=== PATIENT | female | born 1965 | race Caucasian/White ===

== ENCOUNTER → 2016-04-04 | Outpatient (CLI) | payer BC ==
--- NOTE | 2016-04-04 15:25 | REPMRS ---
Patient History The patient states she had a clinical breast exam in Patient is postmenopausal. Family history of ovarian cancer in maternal aunt under age 50. Took hormonal contraceptives for 1 year. Digital Woman Screen Mammo: April 04, 2016 - Exam #: [id number] Bilateral CC and MLO view(s) were taken. Technologist: Dora Mak, Technologist Prior study comparison: January 29, 2015, digital woman screen mammo performed at [facility]. January 20, 2014, digital woman screen mammo performed at [facility]. FINDINGS: There are scattered fibroglandular densities. There has been no change in the appearance of the mammogram from the prior studies. There is a mild amount of residual fibroglandular tissue which is fairly symmetric. There is no interval development of dominant mass, architectural distortion, or clustered microcalcification suggestive of malignancy. Scattered lymph nodes are seen in the axilla. No significant changes when compared with prior studies. ASSESSMENT: BI-RADS/ACR category 2 mammogram. Benign finding(s). Recommendation Routine screening mammogram in 1 year (for women over age 40). This mammogram was interpreted with the aid of an FDA-approved computer-aided dectection system. A. Negative x-ray reports should not delay biopsy if a dominant or clinically suspicious mass is present. B. Four to eight percent of cancers are not identified by mammography. C. Adenosis and dense breast may obscure an underlying neoplasm. Electronically Signed By: Sina Alfredo MD 04/04/16 [id number]
== END ==
LOC: M WHC 14:07
PROVIDERS: ATTEND Nurse Practitioner Family
DX: Z12.31 Encounter for screening mammogram for malignant neoplasm of breast (principal)

== ENCOUNTER → 2016-04-04 | Outpatient (REF) | payer BC | LOC: M SFHCWAGY 14:07 | PROVIDERS: ATTEND Nurse Practitioner Family | DX: Z12.4 Encounter for screening for malignant neoplasm of cervix (principal) ==

== ENCOUNTER → 2016-06-09 | Outpatient (REF) | payer BC ==
[2016-06-09 18:54] LABS: MEAN CORPUSCULAR HEMOGLOBIN 32.6 pg (27.0-33.0); MEAN CORPUSCULAR HGB CONC 34.2 g/dl (32.0-36.5); MEAN CORPUSCULAR VOLUME 95.5 fl (80.0-96.0); RED CELL DISTRIBUTION WIDTH 12.8 % (11.5-14.5); WHITE BLOOD COUNT 9.7 K/mm3 (4.0-10.0)
[2016-06-09 19:13] LABS: ALBUMIN 3.8 GM/DL (3.2-5.2); ALBUMIN/GLOBULIN RATIO 1.36 (1.00-1.93); ALKALINE PHOSPHATASE 71 U/L (45-117); ALT/SGPT 20 U/L (12-78); ANION GAP 6 MEQ/L (8-16); AST/SGOT 15 U/L (15-37); BILIRUBIN,TOTAL 0.3 MG/DL (0.2-1.0); BLOOD UREA NITROGEN 12 MG/DL (7-18); CALCIUM LEVEL 8.4 MG/DL (8.5-10.1); CARBON DIOXIDE LEVEL 29 MEQ/L (21-32); CHLORIDE LEVEL 106 MEQ/L (98-107); CREATININE FOR GFR 0.89 MG/DL (0.55-1.02); GLOMERULAR FILTRATION RATE > 60.0 (>51); GLUCOSE, FASTING 103 MG/DL (70-105); SODIUM LEVEL 141 MEQ/L (136-145); TOTAL PROTEIN 6.6 GM/DL (6.4-8.2); URIC ACID 5.6 MG/DL (2.6-6.0)
== END ==
LOC: M SFHCLERA 15:57
PROVIDERS: ATTEND Physician Assistant
DX: K21.9 Gastro-esophageal reflux disease without esophagitis (principal); E66.3 Overweight; M10.9 Gout, unspecified

== ENCOUNTER 2016-10-09 11:41 | Emergency (ER) | payer BC ==
[~2016-10-09] VITALS: Ht 157.5 cm; Wt 68.1 kg
[2016-10-09] MEDS ORDERED: TRET0.02 EXT (11:49)
[2016-10-09] MEDS ORDERED: IBUP200T45 PO (11:49)
[2016-10-09] MEDS ORDERED: DEXI60CA2 PO (11:49)
[2016-10-09] MEDS ORDERED: DULO1CAP3 PO (11:49)
[2016-10-09] MEDS ORDERED: ALEV220C2 PO (11:49)
[2016-10-09] MEDS ORDERED: diphenhydrAMINE INJ 50MG/ML VIAL (J1200) IV STA (14:49)
[2016-10-09] MEDS ORDERED: NICOTINE 21MG/24HR 1 EA TRANSDERMAL TD ONE (15:00)
[2016-10-09] MEDS ORDERED: NS 1,000 ML IV ONE (15:00)
[2016-10-09] MEDS ORDERED: METOCLOPRAMIDE 10 MG TAB PO ONE (15:00)
[2016-10-09] MEDS ORDERED: KETOROLAC 30 MG/ML VIAL (J1885) IV ONE (15:00)
[2016-10-09 15:34] LABS: BASO % 0.5 % (0.0-1.0); EOS # 0.3 K/mm3 (0.0-0.50); EOS % 3.7 % (0.0-3.0); LARGE UNSTAINED CELL # 0.1 K/mm3 (0.0-0.4); LARGE UNSTAINED CELL % 1.1 % (0.0-4.0); LYMPH # 1.8 K/mm3 (1.5-4.5); LYMPH % 17.8 % (24.0-44.0); MEAN CORPUSCULAR HGB CONC 33.8 g/dl (32.0-36.5); MEAN CORPUSCULAR VOLUME 94.8 fl (80.0-96.0); MONO # 0.5 K/mm3 (0.0-0.8); MONO % 5.5 % (0.0-5.0); NEUTROPHILS # 6.7 K/mm3 (1.8-7.7); NEUTROPHILS % 71.4 % (36.0-66.0); PLATELET COUNT, AUTOMATED 336 k/mm3 (150-450); RED CELL DISTRIBUTION WIDTH 12.7 % (11.5-14.5); WHITE BLOOD COUNT 9.3 K/mm3 (4.0-10.0)
[2016-10-09 15:59] LABS: ALBUMIN 3.5 GM/DL (3.2-5.2); ALBUMIN/GLOBULIN RATIO 1.09 (1.00-1.93); ALKALINE PHOSPHATASE 58 U/L (45-117); ALT/SGPT 16 U/L (12-78); ANION GAP 8 MEQ/L (8-16); AST/SGOT 13 U/L (15-37); BILIRUBIN,DIRECT < 0.1 MG/DL (0.0-0.2); BILIRUBIN,TOTAL 0.3 MG/DL (0.2-1.0); BLOOD UREA NITROGEN 14 MG/DL (7-18); CALCIUM LEVEL 7.8 MG/DL (8.5-10.1); CARBON DIOXIDE LEVEL 27 MEQ/L (21-32); CHLORIDE LEVEL 110 MEQ/L (98-107); CREATININE FOR GFR 0.78 MG/DL (0.55-1.02); GLOMERULAR FILTRATION RATE > 60.0 (>51); GLUCOSE, FASTING 88 MG/DL (70-105); MAGNESIUM LEVEL 2.1 MG/DL (1.8-2.4); POTASSIUM SERUM 3.8 MEQ/L (3.5-5.1); SODIUM LEVEL 145 MEQ/L (136-145); TOTAL PROTEIN 6.7 GM/DL (6.4-8.2)
[2016-10-09 16:25] LABS: ERYTHROCYTE SEDIMENTATION RATE 7 mm/hr (0-30)
--- NOTE | 2016-10-09 19:19 | ECGEPIP ---
Stationary ECG Study [facility] - ED Test Date: 2016-10-09 Pat Name: DONNA ARAZU Department: Room: - Gender: F Team Foreman: CHITO : 1965 Requested By: SHAINA PEGUERO PA-C Order Number: [id number] Reading MD: Pasha Corona Measurements Intervals [place] Rate: 45 P: 42 ND: 159 QRS: 18 QRSD: 89 T: 40 QT: 459 QTc: 399 Interpretive Statements SINUS BRADYCARDIA NO PRIORS Electronically Signed On 10-09-2016 19:18:54 EDT by Pasha Corona
--- NOTE | 2016-10-09 20:30 | REPUSA ---
CLINICAL HISTORY: Headaches. TECHNIQUE: MRI of the brain was performed without administration of intravenous contrast material. T1 spine echo, T2 fast spin echo, DWI and FLAIR sequences were obtained in sagittal, axial and coronal planes. FINDINGS: The sella and parasellar regions are unremarkable in appearance. The corpus callosum and cerebellar t onsils are of normal configuration and position. There are no intra or extra-axial collections. There is no mass effect or midline shift. There is no evidence of hematoma formation. There is no hydrocep halus. There is no evidence of restricted diffusion. The brain stem shows no mass effects, infarcts or hemorrhage. There are no cerebellopontine tumors. T he acoustic nerves are symmetrical. No cerebellar intra-axial pathology delineated. The fourth ventri elisa and aqueduct are normal. No abnormalities of the optic nerves are identified. No dural or subdura l masses or collections are detected. The visualized arterial structures demonstrate normal appearing flow voids. The VII and VIII nerve bu ndles are visualized and are unremarkable in appearance. There are no suspicious signal abnormalities within the infra or supratentorial space. IMPRESSION: Normal MRI of the brain. No acute intracranial pathology. Thank you for your kind referral of this patient.
--- NOTE | 2016-10-09 20:30 | REPUSA ---
CLINICAL HISTORY: Headaches TECHNIQUE: Three dimensional mkee-su-yrgdzl angiography is performed of the [place]. The estrella dy was performed without IV contrast agent. FINDINGS: The supraclinoid portions of the internal carotid arteries are of normal shape. The normal bifurcation is seen. The middle cerebral arteries are unremarkable in appearance. The posterior circu lation is visualized and shows no evidence of occlusion or aneurysm formation. The basilar tip is see n and shows no aneurysm formation. There is no evidence of beading to suggest vasculitis. IMPRESSION: MRA of the [place] is within normal limits. Thank you for your kind referral of this patient.
[2016-10-09 20:44] VITALS: BP 110/60
[2016-10-09] MEDS ORDERED: NORCO 5/325MG TABLET (BULK FOR ED) PO ONE (21:00)
[2016-10-10] MEDS ORDERED: NORC1TAB4 PO (22:45)
[2016-10-10] MEDS ORDERED: ZYRT10TA2 PO (22:45)
[2016-10-10] MEDS ORDERED: BENA25CA4 PO (22:45)
== END 2016-10-09 20:58 | disposition home or self-care (01) ==
LOC: M ED 11:41
DX: R51 Headache (principal); R00.1 Bradycardia, unspecified; F32.9 Major depressive disorder, single episode, unspecified; F41.9 Anxiety disorder, unspecified; K21.9 Gastro-esophageal reflux disease without esophagitis; M79.7 Fibromyalgia; F17.200 Nicotine dependence, unspecified, uncomplicated; Z79.899 Other long term (current) drug therapy
CPT/HCPCS: 70544; 70551; 80048; 80076; 81001; 83605; 83735; 84443; 85025; 85652; 86140; 93005; 96374; 96375; 99284; J1200; J1885

== ENCOUNTER 2016-10-10 22:38 | Emergency (ER) | payer BC ==
[~2016-10-10] VITALS: Ht 157.5 cm; Wt 68.1 kg
[~2016-10-10 22:38] MED LIST: ALEV220C2 PO; DEXI60CA2 PO; DULO1CAP3 PO; IBUP200T45 PO; TRET0.02 EXT
[2016-10-10] MEDS ORDERED: BENA25CA4 PO (22:45)
[2016-10-10] MEDS ORDERED: NORC1TAB4 PO (22:45)
[2016-10-10] MEDS ORDERED: ZYRT10TA2 PO (22:45)
[2016-10-10] MEDS ORDERED: METOCLOPRAMIDE INJ 10MG/2ML VIAL (J2765) IV ONE (23:15)
[2016-10-10] MEDS ORDERED: MORPHINE 10 MG/ML 1ML VIAL IV ONE (23:15)
[2016-10-10] MEDS ORDERED: NS 500 ML IV ONE (23:15)
[2016-10-10 23:33] LABS: BASO # 0.1 K/mm3 (0.0-0.2); BASO % 0.8 % (0.0-1.0); EOS # 0.6 K/mm3 (0.0-0.50); EOS % 7.2 % (0.0-3.0); LARGE UNSTAINED CELL # 0.1 K/mm3 (0.0-0.4); LARGE UNSTAINED CELL % 1.7 % (0.0-4.0); LYMPH # 1.7 K/mm3 (1.5-4.5); MEAN CORPUSCULAR HEMOGLOBIN 31.9 pg (27.0-33.0); MEAN CORPUSCULAR HGB CONC 33.6 g/dl (32.0-36.5); MEAN CORPUSCULAR VOLUME 95.2 fl (80.0-96.0); MONO # 0.3 K/mm3 (0.0-0.8); MONO % 4.2 % (0.0-5.0); NEUTROPHILS # 5.3 K/mm3 (1.8-7.7); NEUTROPHILS % 66.1 % (36.0-66.0); PLATELET COUNT, AUTOMATED 357 k/mm3 (150-450)
[2016-10-10 23:52] LABS: ANION GAP 7 MEQ/L (8-16); BLOOD UREA NITROGEN 9 MG/DL (7-18); CALCIUM LEVEL 8.7 MG/DL (8.5-10.1); CARBON DIOXIDE LEVEL 27 MEQ/L (21-32); CHLORIDE LEVEL 109 MEQ/L (98-107); CREATININE FOR GFR 0.75 MG/DL (0.55-1.02); GLOMERULAR FILTRATION RATE > 60.0 (>51); GLUCOSE, FASTING 97 MG/DL (70-105); POTASSIUM SERUM 4.1 MEQ/L (3.5-5.1); SODIUM LEVEL 143 MEQ/L (136-145)
[2016-10-11 00:03] LABS: ERYTHROCYTE SEDIMENTATION RATE 11 mm/hr (0-30)
[2016-10-11 01:38] LABS: GLUCOSE CSF 56 MG/DL (40-75)
[2016-10-11 03:41] LABS: RBC CSF AUTO 24 /mm3 (0-0); WBC CSF AUTO 4 /mm3 (0-10)
[2016-10-11 03:48] LABS: APPEARANCE, CSF CLEAR (CLEAR); COLOR, CSF COLORLESS (COLORLESS); CSF DIFF IF INDICATED? NO (NO); CSF DILUENT LOT # 6333; CSF TUBE# CELL CNT TUBE 3
[2016-10-11 05:50] VITALS: BP 134/79
[2016-10-11] MEDS ORDERED: NORCO 5/325MG TABLET (BULK FOR ED) PO ONE (06:15)
[2016-10-11 08:34] LABS: CSF GROUP B STREP NEGATIVE (NEGATIVE); CSF H. INFLUENZA NEGATIVE (NEGATIVE); CSF N MENINGITIDIS ACYW135 NEGATIVE (NEGATIVE); CSF STREP PNUEMO NEGATIVE (NEGATIVE)
[2016-10-12] MEDS ORDERED: REGL10TA6 PO (23:50)
[2016-10-12] MEDS ORDERED: [UNRECOGNIZED DRUG - OTHER] (23:50)
[2016-10-12] MEDS ORDERED: IMIT100T PO (23:50)
[2016-10-14 00:07] LABS: CSFLYM10 Absent (.); CSFLYM11 Absent (.); CSFLYM12 Negative (.); CSFLYM14 Absent (.); CSFLYM15 Absent (.); CSFLYM16 Absent (.); CSFLYM17 Negative (.); CSFLYM2 Absent (.); CSFLYM3 Absent (.); CSFLYM4 Absent (.); CSFLYM5 Absent (.); CSFLYM6 Absent (.); CSFLYM7 Absent (.); CSFLYM8 Absent (.); CSFLYM9 Absent (.)
== END 2016-10-11 06:11 | disposition home or self-care (01) ==
LOC: M ED 22:38
DX: R51 Headache (principal); T58.91XA Toxic effect of carbon monoxide from unspecified source, accidental (unintentional), initial encounter; Y92.9 Unspecified place or not applicable; Y93.9 Activity, unspecified; F32.9 Major depressive disorder, single episode, unspecified; F17.200 Nicotine dependence, unspecified, uncomplicated; Z79.899 Other long term (current) drug therapy
CPT/HCPCS: 80048; 82375; 82945; 84157; 85025; 85652; 86617; 87015; 87040; 87070; 87205; 87496; 87498; 87529; 87798; 87802; 87899; 89050; 96374; 96375; 99284; G0480; J2765

== ENCOUNTER 2016-10-12 23:40 | Inpatient (IN) | payer BC ==
[~2016-10-12] VITALS: Ht 157.5 cm; Wt 70.2 kg
[~2016-10-12 23:40] MED LIST changes: -ALEV220T26 PO; -BACITAB PO; -DICL75TA PO; -IBUPOTC PO; -IMIT100T PO; -PRED10TA2 PO; -REGL10TA6 PO; -ZANA4TAB PO; -ZONE1CAP PO; -[UNRECOGNIZED DRUG - OTHER]
[2016-10-12] MEDS ORDERED: REGL10TA6 PO (23:50)
[2016-10-12] MEDS ORDERED: IMIT100T PO (23:50)
[2016-10-12] MEDS ORDERED: [UNRECOGNIZED DRUG - OTHER] (23:50)
[2016-10-13] MEDS ORDERED: diphenhydrAMINE INJ 50MG/ML VIAL (J1200) IV ONE ×2 (00:30→02:15)
[2016-10-13] MEDS ORDERED: VALPROATE SOD INJ 1,000 MG in D5W 50 ML IV ONE (00:30)
[2016-10-13] MEDS ORDERED: METOCLOPRAMIDE INJ 10MG/2ML VIAL (J2765) IV ONE ×2 (00:30→02:15)
[2016-10-13] MEDS ORDERED: NS 1,000 ML IV ONE (00:30)
[2016-10-13] MEDS ORDERED: KETOROLAC 30 MG/ML VIAL (J1885) IV ONE (00:30)
[2016-10-13] MEDS ORDERED: HYDROmorphone HCL 1 MG/ML SYRINGE (J1170) IV PRN ×2 (03:00→07:01)
[2016-10-13] MEDS ORDERED: MAG SULF 1GM/100ML (MAG RUN) 1 GM in APPROPRIATE DILUENT 1 EA IV ONE (03:15)
[2016-10-13] MEDS ORDERED: methylPREDNISolone INJ 125 MG/2 ML VIAL (J2930) IV ONE (03:15)
[2016-10-13] MEDS ORDERED: HYDROmorphone HCL 2 MG/ML 1ML VIAL (J1170) IV PRN (06:15)
[2016-10-13] MEDS ORDERED: NICOTINE 14 MG/24 HR TRANSDERMAL TD ONE (06:45)
--- NOTE | 2016-10-13 06:45 | HPEPDOC ---
General Date of Admission Oct 13, 2016 at 06:20 Chief Complaint The patient is a 50-year-old female Presented to the ER with complaints of headache that was unable to be controlled with medications. History of Present Illness Patient is a 50 year old female with a PMHx of Depression, Seasonal allergies and GERD who presented to the ER with a headache that has been going on for 8 days. She notes that the headache occurs in the frontal portion and top of her head. She notes that it radiates around her head. Described the pain as a throbbing, 10/10 pain, no alleviating or aggravating factors. She denies any associated nausea, vomiting, dizziness, confusion, visual problems. Denies any sensitivity to light or sound. Denies any muscle weakness or sensory loss. She noted that she has been in the ER several times in the past few days and was given pain medications, but they have done very little to improve the pain. She has received Solumedrol, Dialudid, Valium and Benadyl currently and notes that her headache has improved significantly. She notes the pain is currently a 3/10. Neurology has been contacted by the ER for assistance and will be on consultation. She denies any chest pain, shortness of breath, palpitations, abdominal pain, constipation, diarrhea or dysuria. She denies any fever or chills. Home Medications Scheduled Cetirizine HCl (Zyrtec Allergy) 10 Mg Tab, 10 MG PO DAILY, (Reported) Scheduled PRN (Aleve) 220 Mg Cap, 220 MG PO PRN PRN for pain, (Reported) Acetaminophen/Hydrocodone (Mikana 5-325 mg) 1 Tab Tab, 1 TAB PO for HEADACHE, ( Reported) Ibuprofen (Ibu-200) 200 Mg Tab, 600 MG PO QIDP PRN for pain, (Reported) Metoclopramide HCl (Reglan) 10 Mg Tab, 10 MG PO Q6H PRN for NAUSEA, (Reported) Miscellaneous Medications (Dexilant) 60 Mg Cap, (Reported) Diphenhydramine HCl (Benadryl Allergy) 25 Mg Cap, 25 MG PO, (Reported) Duloxetine Hcl (Duloxetine HCl) 60 Mg Cap, (Reported) Sumatriptan Succinate (Imitrex) 100 Mg Tab, 100 MG PO, (Reported) Tretinoin (Tretinoin) 0.025 % Cre, (Reported) [diflo] , (Reported) Allergies Coded Allergies: No Known Drug Allergy (Unverified Allergy, Unknown, 10/12/16) Past Medical History Medical History Depression, Seasonal allergies and GERD Surgical History x2 Family History - Non-contributory Social History - Denies the use of illicit drugs; Social alcohol use; Smoker for >30 years at 1 ppd - Denies recent travel or sick contacts - Lives with boyfriend and daughter - Occupation; Flag person for construction Review of Symptoms Other systems 10 point review of systems complete; negative otherwise stated in HPI Vital Signs - Vitals: BP 116/55, HR 46, RR 16, Sat 93%RA, Temp 97.4 - General: Lying in bed, No acute distress, Speaking in full sentences, AAOx3 - HEENT: NC, AT, PERRLA, EOMI - CVS: RRR, +S1S2 - Lungs: Fair air entry bilaterally, Clear to auscultation, No wheezing / rales / rhonchi - Abdomen: Soft, Non-distended, Non-tender, + Bowel sounds x 4 - Extremities: No lower extremity edema, No calf tenderness - Neuro: No focal motor (5/5 at bilateral upper and lower extremities) or sensory deficit - Skin: No visible rashes Laboratory Data Labs 24H Laboratory Tests 2 10/13/16 00:29: 10/13/16 00:30: Carboxyhemoglobin 8.0H Plan / VTE VTE Prophylaxis Ordered?: Yes Plan Plan Intractable headache likely 2/2 migraine headache - Presented to the ER with complaints of headache that was not resolved with oral medications - Physical without any focal deficits - Will check basic labs - MRI completed on 10/09: No acute pathology noted - Improved with Solumedrol, Dilaudid and Valium; will c/w current regimen - Case discussed between ER physician and Neurology; advised that they will be on consult Depression - c/w Duloxetine Seasonal allergies GERD - Will start protonix DVT prophylaxis - Will start Lovenox HARI FAJARDO MD Oct 13, 2016 06:45
[2016-10-13 06:50] LABS: BASO % 0.4 % (0.0-1.0); EOS # 0.5 K/mm3 (0.0-0.50); EOS % 5.3 % (0.0-3.0); LARGE UNSTAINED CELL # 0.1 K/mm3 (0.0-0.4); LARGE UNSTAINED CELL % 1.2 % (0.0-4.0); LYMPH # 1.5 K/mm3 (1.5-4.5); LYMPH % 16.2 % (24.0-44.0); MEAN CORPUSCULAR HEMOGLOBIN 32.6 pg (27.0-33.0); MEAN CORPUSCULAR HGB CONC 34.3 g/dl (32.0-36.5); MEAN CORPUSCULAR VOLUME 95.1 fl (80.0-96.0); MONO # 0.4 K/mm3 (0.0-0.8); NEUTROPHILS # 6.6 K/mm3 (1.8-7.7); PLATELET COUNT, AUTOMATED 362 k/mm3 (150-450); RED CELL DISTRIBUTION WIDTH 12.3 % (11.5-14.5)
[2016-10-13] MEDS ORDERED: BACITAB PO (06:50)
[2016-10-13] MEDS ORDERED: DICL75TA PO (06:50)
[2016-10-13] MEDS ORDERED: IBUPOTC PO (06:50)
[2016-10-13] MEDS ORDERED: ALEV220T26 PO (06:50)
[2016-10-13 06:53] LABS: ALBUMIN 3.6 GM/DL (3.2-5.2); ALBUMIN/GLOBULIN RATIO 1.16 (1.00-1.93); ALKALINE PHOSPHATASE 58 U/L (45-117); ALT/SGPT 22 U/L (12-78); ANION GAP 10 MEQ/L (8-16); AST/SGOT 11 U/L (15-37); BILIRUBIN,TOTAL 0.2 MG/DL (0.2-1.0); BLOOD UREA NITROGEN 13 MG/DL (7-18); CALCIUM LEVEL 8.5 MG/DL (8.5-10.1); CARBON DIOXIDE LEVEL 27 MEQ/L (21-32); CHLORIDE LEVEL 108 MEQ/L (98-107); CREATININE FOR GFR 0.81 MG/DL (0.55-1.02); GLOMERULAR FILTRATION RATE > 60.0 (>51); GLUCOSE, FASTING 93 MG/DL (70-105); MAGNESIUM LEVEL 2.3 MG/DL (1.8-2.4); POTASSIUM SERUM 4.1 MEQ/L (3.5-5.1); SODIUM LEVEL 145 MEQ/L (136-145); TOTAL PROTEIN 6.7 GM/DL (6.4-8.2)
[2016-10-13] MEDS: PANTOPRAZOLE 40MG TAB (PROTONIX) PO SCH (08:51)
[2016-10-13] MEDS: ENOXAPARIN 40 MG/0.4 ML SYRINGE (J1650) SC SCH (08:51)
[2016-10-13] MEDS ORDERED: methylPREDNISolone INJ 125 MG/2 ML VIAL (J2930) IV SCH (11:00)
[2016-10-13 17:36] VITALS: BP 115/71
[2016-10-13] MEDS ORDERED: methylPREDNISolone INJ 125 MG/2 ML VIAL (J2930) As Ordered ONE (18:25)
[2016-10-13 20:00] VITALS: BP 124/58
[2016-10-13] MEDS: DULoxetine 30 MG CAP (CYMBALTA) PO SCH (20:25)
[2016-10-13] MEDS: MORPHINE 4 MG/ML 1ML SYRINGE IV PRN (20:26)
[2016-10-13] MEDS: diphenhydrAMINE INJ 50MG/ML VIAL (J1200) IV PRN (20:27)
[2016-10-13] MEDS: ONDANSETRON 4MG/2ML VIAL (J2405) IV SCH (20:27)
[2016-10-13] MEDS ORDERED: ZONISAMIDE 50 MG CAP (ZONEGRAN) PO SCH (21:00)
[2016-10-13] MEDS: KETOROLAC 30 MG/ML VIAL (J1885) IV SCH (22:00)
[2016-10-14 04:00] VITALS: BP 107/56
[2016-10-14] MEDS: MORPHINE 4 MG/ML 1ML SYRINGE IV PRN (04:35)
[2016-10-14] MEDS: KETOROLAC 30 MG/ML VIAL (J1885) IV SCH ×2 (04:35→13:54)
[2016-10-14 05:57] LABS: BASO % 0.1 % (0.0-1.0); EOS % 0.1 % (0.0-3.0); LARGE UNSTAINED CELL # 0.1 K/mm3 (0.0-0.4); LARGE UNSTAINED CELL % 0.4 % (0.0-4.0); LYMPH # 0.9 K/mm3 (1.5-4.5); LYMPH % 4.9 % (24.0-44.0); MEAN CORPUSCULAR HEMOGLOBIN 31.7 pg (27.0-33.0); MEAN CORPUSCULAR HGB CONC 34.1 g/dl (32.0-36.5); MONO # 0.7 K/mm3 (0.0-0.8); NEUTROPHILS # 14.9 K/mm3 (1.8-7.7); NEUTROPHILS % 90.5 % (36.0-66.0); PLATELET COUNT, AUTOMATED 325 k/mm3 (150-450); RED CELL DISTRIBUTION WIDTH 12.5 % (11.5-14.5); WHITE BLOOD COUNT 16.4 K/mm3 (4.0-10.0)
[2016-10-14] MEDS: ONDANSETRON 4MG/2ML VIAL (J2405) IV SCH ×2 (06:00→13:53)
[2016-10-14 06:20] LABS: ALBUMIN 3.2 GM/DL (3.2-5.2); ALKALINE PHOSPHATASE 54 U/L (45-117); ALT/SGPT 16 U/L (12-78); ANION GAP 7 MEQ/L (8-16); AST/SGOT 5 U/L (15-37); BILIRUBIN,TOTAL 0.3 MG/DL (0.2-1.0); BLOOD UREA NITROGEN 16 MG/DL (7-18); CALCIUM LEVEL 8.6 MG/DL (8.5-10.1); CARBON DIOXIDE LEVEL 27 MEQ/L (21-32); CHLORIDE LEVEL 109 MEQ/L (98-107); CREATININE FOR GFR 0.72 MG/DL (0.55-1.02); GLOMERULAR FILTRATION RATE > 60.0 (>51); GLUCOSE, FASTING 132 MG/DL (70-105); MAGNESIUM LEVEL 2.3 MG/DL (1.8-2.4); POTASSIUM SERUM 3.9 MEQ/L (3.5-5.1); SODIUM LEVEL 143 MEQ/L (136-145); TOTAL PROTEIN 6.4 GM/DL (6.4-8.2)
[2016-10-14 08:00] VITALS: BP 102/58
[2016-10-14] MEDS: PANTOPRAZOLE 40MG TAB (PROTONIX) PO SCH (09:02)
[2016-10-14] MEDS: NICOTINE 14 MG/24 HR TRANSDERMAL TD SCH (09:02)
[2016-10-14] MEDS: predniSONE 20 MG TAB PO SCH (09:02)
[2016-10-14] MEDS: ENOXAPARIN 40 MG/0.4 ML SYRINGE (J1650) SC SCH (09:02)
--- NOTE | 2016-10-14 14:52 | REP ---
CT Head without contrast History: hemorrhage COMPARISON: MR 10/09/2016 There is no intraparenchymal hemorrhage, acute infarct, mass or midline shift. The ventricular system is normal in appearance. There is no extra cerebral collection. There is no fracture. The visualized sinuses are clear. IMPRESSION: There is no intracranial lesion. Signed by Tomy Anthony MD 10/14/2016 01:23 P
[2016-10-14] MEDS: tiZANidine 4 MG TAB PO PRN ×2 (15:52→23:36)
[2016-10-14 16:55] VITALS: BP 118/69
[2016-10-14] MEDS: ACETAMINOPHEN TAB 650MG DOSE (2X325MG) PO PRN (17:06)
[2016-10-14 20:00] VITALS: BP 122/79
[2016-10-14] MEDS: DULoxetine 30 MG CAP (CYMBALTA) PO SCH (20:14)
[2016-10-14] MEDS ORDERED: ZONISAMIDE 100 MG CAP (ZONEGRAN) PO SCH (21:00)
--- NOTE | 2016-10-14 21:55 | IPNPDOC ---
Subjective Date Seen The patient was seen on 10/14/16. Subjective Chief Complaint/HPI The patient is a 50-year-old female admitted with a reason for visit of Migraine With Status Migrainosus. Pt was seen and examined at bedside. Boyfriend was present in the room. No acute complaints. Pt stated that she is feeling better than when she was admitted. Pt stated that her headache today was a 5/10 and more localized to the frontal lobe, no radiation, described as "achy". Original headache was higher pain and global. Pt denies nausea, eye pain , sensitivity to light or noises, tinnitus, and dizziness. Constitutional: Denies: Chills, Fever Eyes: Reports: Other (no photophbia), Denies: Pain, Vision change ENT: Reports: Head Aches (5/10, located at the frontal lobe), Denies: Dysphagia Pulmonary: Denies: Dyspnea, Cough Cardiovascular: Denies: Chest Pain, Palpitations, Edema, Lt Headedness Gastrointestinal: Denies: Nausea, Vomiting, Abdominal Pain, Diarrhea, Constipation Neurological: Denies: Weakness, Numbness Psych: Reports: Mood Normal, Denies: Memory Issues Objective Physical Examination General Exam: Positive: Alert, Cooperative, No Acute Distress Eye Exam: Positive: PERRLA, Conjunctiva & lids normal, EOMI ENT Exam: Positive: Atraumatic, Mucous membr. moist/pink Neck Exam: Positive: Supple, Negative: JVD, Lymphadenopathy Chest Exam: Positive: Clear to auscultation, Normal air movement, Negative: Wheezing Heart Exam: Positive: Rate Normal, Regular Rhythm, Normal S1, Normal S2, Negative: Murmurs Abdomen Exam: Positive: Normal bowel sounds, Soft, Negative: Tenderness Extremity Exam: Positive: Normal pulses, Negative: Clubbing, Cyanosis, Edema, Tenderness Skin Exam: Positive: Nl turgor and temperature Neuro Exam: Positive: Normal Speech Psych Exam: Positive: Mental status NL, Mood NL, Oriented x 3 Assessment /Plan Assessment Intractable headache likely a migraine headache - no focal deficits - MRI 10/09: No acute pathology - Head Ct today 10/14: no intracranial lesion. No hemorrhage/aneurysm - Improved with Solumedrol, Dilaudid and Valium; will c/w current regimen - Neurology consulted. Appreciate their input. - Zonisamide increased from 50 to 100mg. Added Tizanidine 2mg. - Lyme Disease panel --pending Leukocytosis - likely reactionary to Prednisone taper. Monitor Elevated CarboxyHb - decreased from 8 on admission to 1.9 today. Continue monitoring Depression -continue home medication Duloxetine Seasonal allergies - continue Benadryl GERD -continue Protonix DVT prophylaxis -continue Lovenox Smoking -Nicotine patch Plan/VTE VTE Prophylaxis Ordered?: Yes VS, I&O, 24H, Fishbone Vital Signs/I&O Vital Signs Date Time Temp Pulse Resp B/P (MAP) Pulse Ox O2 Delivery O2 Flow Rate FiO2 10/14/16 08:00 98.1 59 18 102/58 (73) 96 Room Air 10/13/16 17:36 97 I&O- Last 24 Hours up to 6 AM 10/14/16 05:59 Intake Total 0 ml Output Total 0 ml Balance 0 ml Laboratory Data 24H LABS Laboratory Tests 2 10/14/16 05:26: White Blood Count 16.4H, Red Blood Count 3.92L, Hemoglobin 12.4, Hematocrit 36.5 , Mean Corpuscular Volume 93.0, Mean Corpuscular Hemoglobin 31.7, Mean Corpuscular Hemoglobin Concent 34.1, Red Cell Distribution Width 12.5, Platelet Count 325, Neutrophils (%) (Auto) 90.5H, Lymphocytes (%) (Auto) 4.9L, Monocytes (%) (Auto) 4.0, Eosinophils (%) (Auto) 0.1, Basophils (%) (Auto) 0.1, Neutrophils # (Auto) 14.9H, Lymphocytes # (Auto) 0.9L, Monocytes # (Auto) 0.7, Eosinophils # (Auto) 0.0, Basophils # (Auto) 0.0, Large Unclassified Cells % 0.4 , Large Unclassified Cells # 0.1, Anion Gap 7L, Glomerular Filtration Rate > 60.0, Blood Urea Nitrogen 16, Creatinine 0.72, Sodium Level 143, Potassium Level 3.9, Chloride Level 109H, Carbon Dioxide Level 27, Calcium Level 8.6, Aspartate Amino Transf (AST/SGOT) 5L, Alanine Aminotransferase (ALT/SGPT) 16, Alkaline Phosphatase 54, Total Bilirubin 0.3, Total Protein 6.4, Albumin 3.2, Magnesium Level 2.3, Albumin/Globulin Ratio 1.00 CBC/BMP Laboratory Tests 9/1/17 05:26 Red Blood Count 3.92 L, Mean Corpuscular Volume 93.0, Mean Corpuscular Hemoglobin 31.7, Mean Corpuscular Hemoglobin Concent 34.1, Red Cell Distribution Width 12.5, Neutrophils (%) (Auto) 90.5 H, Lymphocytes (%) (Auto) 4.9 L, Monocytes (%) (Auto) 4.0, Eosinophils (%) (Auto) 0.1, Basophils (%) (Auto ) 0.1, Neutrophils # (Auto) 14.9 H, Lymphocytes # (Auto) 0.9 L, Monocytes # ( Auto) 0.7, Eosinophils # (Auto) 0.0, Basophils # (Auto) 0.0, Calcium Level 8.6, Aspartate Amino Transf (AST/SGOT) 5 L, Alanine Aminotransferase (ALT/SGPT) 16, Alkaline Phosphatase 54, Total Bilirubin 0.3, Total Protein 6.4, Albumin 3.2 GME ATTESTATION GME ATTESTATION My preceptor for this patient encounter was physically present in the building during the encounter and was fully available. As needed, all aspects of the patient interview, examination, medical decision making process, and medical care plan development were reviewed and approved by the preceptor. Preceptor is aware and concurs with the plan as stated in the body of this note and will attest to such by his/her cosignature. JEREMY JONES DO Oct 14, 2016 10:29
[2016-10-14] MEDS: diphenhydrAMINE INJ 50MG/ML VIAL (J1200) IV PRN (23:36)
[2016-10-15] VITALS: BP 116/66
[2016-10-15 04:00] VITALS: BP 122/80
[2016-10-15] MEDS: ACETAMINOPHEN TAB 650MG DOSE (2X325MG) PO PRN ×2 (06:15→12:53)
[2016-10-15 07:24] LABS: BASO % 0.1 % (0.0-1.0); EOS % 0.3 % (0.0-3.0); LARGE UNSTAINED CELL # 0.1 K/mm3 (0.0-0.4); LARGE UNSTAINED CELL % 1.1 % (0.0-4.0); LYMPH # 2.1 K/mm3 (1.5-4.5); LYMPH % 15.9 % (24.0-44.0); MEAN CORPUSCULAR HEMOGLOBIN 31.8 pg (27.0-33.0); MEAN CORPUSCULAR HGB CONC 34.5 g/dl (32.0-36.5); MEAN CORPUSCULAR VOLUME 92.3 fl (80.0-96.0); MONO # 0.6 K/mm3 (0.0-0.8); MONO % 4.7 % (0.0-5.0); NEUTROPHILS # 9.8 K/mm3 (1.8-7.7); NEUTROPHILS % 77.8 % (36.0-66.0); PLATELET COUNT, AUTOMATED 304 k/mm3 (150-450); RED CELL DISTRIBUTION WIDTH 12.8 % (11.5-14.5); WHITE BLOOD COUNT 12.5 K/mm3 (4.0-10.0)
[2016-10-15 07:55] LABS: ALKALINE PHOSPHATASE 46 U/L (45-117); ALT/SGPT 24 U/L (12-78); ANION GAP 8 MEQ/L (8-16); AST/SGOT 9 U/L (15-37); BILIRUBIN,TOTAL 0.3 MG/DL (0.2-1.0); BLOOD UREA NITROGEN 22 MG/DL (7-18); CALCIUM LEVEL 8.4 MG/DL (8.5-10.1); CARBON DIOXIDE LEVEL 24 MEQ/L (21-32); CHLORIDE LEVEL 114 MEQ/L (98-107); CREATININE FOR GFR 0.73 MG/DL (0.55-1.02); GLOMERULAR FILTRATION RATE > 60.0 (>51); GLUCOSE, FASTING 90 MG/DL (70-105); MAGNESIUM LEVEL 2.1 MG/DL (1.8-2.4); POTASSIUM SERUM 3.7 MEQ/L (3.5-5.1); SODIUM LEVEL 146 MEQ/L (136-145)
[2016-10-15 08:00] VITALS: BP 126/71
[2016-10-15] MEDS: ENOXAPARIN 40 MG/0.4 ML SYRINGE (J1650) SC SCH (09:03)
[2016-10-15] MEDS: NICOTINE 14 MG/24 HR TRANSDERMAL TD SCH (09:03)
[2016-10-15] MEDS: PANTOPRAZOLE 40MG TAB (PROTONIX) PO SCH (09:04)
[2016-10-15] MEDS: predniSONE 20 MG TAB PO SCH (09:04)
[2016-10-15 12:00] VITALS: BP 112/64
[2016-10-15] MEDS: tiZANidine 4 MG TAB PO PRN (12:53)
[2016-10-15] MEDS ORDERED: PRED10TA2 PO (13:56)
[2016-10-15] MEDS ORDERED: ZANA4TAB PO (13:56)
[2016-10-15] MEDS ORDERED: ZONE1CAP PO (13:56)
--- NOTE | 2016-10-15 14:02 | DS.PDOC ---
Discharge Summary General Date of Admission Oct 13, 2016 at 06:20 Date of Discharge 10/15/16 Primary Care Physician: HECTOR SPENCE PA-C Attending Physician: RANDALL KRUEGER DO Specialist/Consultants Involve: BILLY CLAYTON MD Discharge Summary PROCEDURES PERFORMED DURING STAY: None ADMITTING DIAGNOSES: 1. Thunderclap headache 2. Carboxyhemoglobinemia DISCHARGE DIAGNOSES: 1. Thunderclap headache COMPLICATIONS/CHIEF COMPLAINT: Migraine With Status Migrainosus. HISTORY OF PRESENT ILLNESS: Pt presented to ED on 10/13/16 for intractable headache that started when she was at work and caused her to drop to her knees due to severity of the pain. Pt denied photophobia, tinnitus, sensitivity to sounds and light, dizziness, lightheadedness, nausea, vomiting, shortness of breath, chest pain, slurred speech, loss of consciousness, paresthesia, and confusion. Pt has visited the ED for headaches on multiple occasions previously as well. ED workup was negative, but noticable for elevated CarboxyHb of 10 on ED visit, and 8 on 10/13/16 visit; pt stated she smokes and also is around car fumes, as she is a flag person for construction sites. She rated this episode a 10/10 pain, not aggravated or alleviated by anything, no triggers or temporal association noticed by patient. Pt denied recent travel history, sick contacts, changes in medications or lifestyle. HOSPITAL COURSE: During her stay, CT of head during current admission resulted negative for any pathology. All labs, notes, and imaging, including head MRIs, from previous ED admission on 10/09/16 were again thoroughly reviewed and imaging discussed in person with Radiology, after which no acute concerns were found. Regimen of Solumedrol, Dilaudid and Valium combination helped control the headache upon presentation. Neurology was consulted, and medications were adjusted, and pt was started on: steroid taper at 60mg, Zonisamide, and Tizanidine. Lyme Disease screen was ordered and still pending. CarboxyHb reduced to 1.9. Vitals were stable throughout entire current hospital stay. Pt started feeling better from admission, and was assessed to be stable for discharge. Discussed with patient to follow up with PCP in 1 week and Neurology in 1-2 weeks, and to return to ED if symptoms persist or worsen, or new acute emergency occurs. Pt relayed understanding. DISCHARGE MEDICATIONS: Please see below. ALLERGIES: Please see below. PHYSICAL EXAMINATION ON DISCHARGE: VITAL SIGNS: Please see below. GENERAL: A&Ox3, NAD, cooperative HEENT: normocephalic, atraumatic, EOMI NECK: supple, no JVD CARDIOVASCULAR EXAMINATION: normal S1 S2, RRR, no murmurs RESPIRATORY EXAMINATION: CTAB, good air exchange ABDOMINAL EXAMINATION: soft, nontender, nondistended, positive bowel sounds EXTREMITIES: no clubbing, cyanosis, edema, tenderness SKIN: warm and pink NEUROLOGICAL EXAMINATION: motor and sensation intact. 5/5 strength, good tone and speech PSYCHIATRIC EXAMINATION: normal mood with congruent affect LABORATORY DATA: Please see below. IMAGING: * 10/14/16 CT of head: no intracranial lesion * re-reviewed 10/09/16 MRIs: "Normal MRI of the brain. No acute intracranial pathology.", and "MRA of the [place] is within normal limits." * re-reviewed spinal tap results from 10/11/16: negative PROGNOSIS: Good ACTIVITY: As tolerated DIET: Regular DISPOSITION: Home DISCHARGE INSTRUCTIONS: 1. Follow up with PCP in 1 week 2. Follow up with Neurology in 2-3 weeks 3. Return to ED if symptoms persist or worsen, or if new emergency arises DISCHARGE CONDITION: Stable TIME SPENT ON DISCHARGE: Greater than 30 minutes. Vital Signs/I&Os Vital Signs Date Time Temp Pulse Resp B/P (MAP) Pulse Ox O2 Delivery O2 Flow Rate FiO2 10/15/16 04:00 98.6 51 18 122/80 (94) 95 Room Air 10/13/16 17:36 97 I&O- Last 24 Hours up to 6 AM 10/15/16 06:00 Intake Total 1520 ml Output Total 300 ml Balance 1220 ml Laboratory Data Labs 24H Laboratory Tests 2 10/14/16 13:47: Carboxyhemoglobin 1.9H 10/15/16 07:04: White Blood Count 12.5H, Red Blood Count 3.80L, Hemoglobin 12.1, Hematocrit 35.0L, Mean Corpuscular Volume 92.3, Mean Corpuscular Hemoglobin 31.8, Mean Corpuscular Hemoglobin Concent 34.5, Red Cell Distribution Width 12.8, Platelet Count 304, Neutrophils (%) (Auto) 77.8H, Lymphocytes (%) (Auto) 15.9L, Monocytes (%) (Auto) 4.7, Eosinophils (%) (Auto) 0.3, Basophils (%) (Auto) 0.1, Neutrophils # (Auto) 9.8H, Lymphocytes # (Auto) 2.1, Monocytes # (Auto) 0.6, Eosinophils # (Auto) 0.0, Basophils # (Auto) 0.0, Large Unclassified Cells % 1.1 , Large Unclassified Cells # 0.1, Anion Gap 8, Glomerular Filtration Rate > 60.0 , Blood Urea Nitrogen 22H, Creatinine 0.73, Sodium Level 146H, Potassium Level 3.7, Chloride Level 114H, Carbon Dioxide Level 24, Calcium Level 8.4L, Aspartate Amino Transf (AST/SGOT) 9L, Alanine Aminotransferase (ALT/SGPT) 24, Alkaline Phosphatase 46, Total Bilirubin 0.3, Total Protein 6.0L, Albumin 3.0L, Magnesium Level 2.1, Albumin/Globulin Ratio 1.00 CBC/BMP Laboratory Tests 10/15/16 07:04 Red Blood Count 3.80 L, Mean Corpuscular Volume 92.3, Mean Corpuscular Hemoglobin 31.8, Mean Corpuscular Hemoglobin Concent 34.5, Red Cell Distribution Width 12.8, Neutrophils (%) (Auto) 77.8 H, Lymphocytes (%) (Auto) 15.9 L, Monocytes (%) (Auto) 4.7, Eosinophils (%) (Auto) 0.3, Basophils (%) ( Auto) 0.1, Neutrophils # (Auto) 9.8 H, Lymphocytes # (Auto) 2.1, Monocytes # ( Auto) 0.6, Eosinophils # (Auto) 0.0, Basophils # (Auto) 0.0, Calcium Level 8.4 L , Aspartate Amino Transf (AST/SGOT) 9 L, Alanine Aminotransferase (ALT/SGPT) 24 , Alkaline Phosphatase 46, Total Bilirubin 0.3, Total Protein 6.0 L, Albumin 3.0 L Discharge Medications Scheduled (Dexilant) 60 Mg Cap, 60 MG PO DAILY, (Reported) Cetirizine HCl (Zyrtec Allergy) 10 Mg Tab, 10 MG PO QHS, (Reported) Diclofenac Sodium (Diclofenac Sodium Dr) 75 Mg Tab, 75 MG PO BID, (Reported) THIS WAS THE FIRST DOSE Duloxetine Hcl (Duloxetine HCl) 60 Mg Cap, 60 MG PO QHS, (Reported) Lactobacillus Acidophilus (Bacid) 1 Tab Tab, 1 TAB PO DAILY, (Reported) Prednisone (Prednisone) 10 Mg Tab, 10 MG PO TAPER Take 4 tabs daily (40mg) x 2 days Then 2 tabs daily (20mg) x 2 days Then 1 tab daily (10mg) x 2 days and stop Tretinoin (Tretinoin) 0.025 % Cre, 1 DOSE EXT DAILY, (Reported) USES ON FACE Zonisamide (Zonegran) 100 Mg Cap, 100 MG PO QHS Scheduled PRN Diphenhydramine HCl (Benadryl Allergy) 25 Mg Cap, 25 MG PO Q6H PRN for ALLERGIES /SLEEP, (Reported) Ibuprofen (Ibuprofen) 200 Mg Tab, 600 MG PO Q6H PRN for PAIN, (Reported) Metoclopramide HCl (Reglan) 10 Mg Tab, 10 MG PO Q6H PRN for NAUSEA, (Reported) Naproxen Sodium (Aleve) 220 Mg Tab, 440 MG PO BID PRN for PAIN, (Reported) Sumatriptan Succinate (Imitrex) 100 Mg Tab, 100 MG PO ASDIRECTED PRN for MIGRAINE, (Reported) Tizanidine Hydrochloride (Zanaflex) 4 Mg Tab, 2 MG PO TID PRN for PAIN OR DISCOMFORT Allergies Coded Allergies: No Known Drug Allergy (Unverified Allergy, Unknown, 10/12/16) GME ATTESTATION GME ATTESTATION My preceptor for this patient encounter was physically present in the building during the encounter and was fully available. As needed, all aspects of the patient interview, examination, medical decision making process, and medical care plan development were reviewed and approved by the preceptor. Preceptor is aware and concurs with the plan as stated in the body of this note and will attest to such by his/her cosignature. JEREMY JONES DO Oct 15, 2016 08:20
[2016-10-16 00:06] LABS: Lyme Disease IgG/IgM Antibodie <0.91 ISR (0.00-0.90); Lyme Disease IgM Ab Quantitati <0.80 index (0.00-0.79)
[2016-10-16] MEDS ORDERED: predniSONE 20 MG TAB PO SCH (09:00)
--- NOTE | 2016-10-17 11:12 | CR ---
DATE OF CONSULTATION: 10/16/2016 REFERRING PROVIDER: Dr. Megan Longoria REASON FOR CONSULTATION: New onset headache. Possible status migrainosus. The patient is a 50-year-old, right-handed female with a past medical history significant for migraine headaches presenting with acute complaint of having a persistent headache for 8 days straight. She states this headache is a little bit different in nature. It was sudden in onset and it was described as the worst headache of her life. It occurred approximately 8 days ago last . The patient was seen at [facility] and had initial workup done at that time. Since then, the patient had been seen in [facility] at least on Monday, Monday, and and was admitted. The patient had workup on 10/10/2016 including a spinal tap, which was normal. An MRI completed at our facility did not reveal any acute stroke or any evidence of hemorrhage. A repeat head CT was ordered, which did not reveal any hemorrhage. Xanthochromia was not noted on the cerebral spinal fluid (CSF) sample. The patient did not have any MR angiogram evidence of any intracranial aneurysm. During the hospital stay, the patient has received numerous medications including Dilaudid, hydrocodone, fentanyl, morphine, Reglan, IV Depacon, Solu-Medrol, Toradol, for the management of her headaches. The patient states that her headache has improved. She actually does not appear to look in any acute distress and seems quite calm and relaxed. The patient does state that she has a 5 out of 10 headache located at the top of the head. She states that the pain was a 10 out of 10. The patient feels that the headache feels like pressure and can be throbbing. It is not associated with any light or sound sensitivity, dizziness, change in vision, sensory, motor or speech changes. She states she has had occasional nausea when the headache was quite severe. The patient states that she has children with migraines and her father suffered with migraines. The patient used to have temporal throbbing headaches. PAST MEDICAL HISTORY: History of fibromyalgia. Ankylosing spondylitis followed by rheumatology in [place], [place]. The patient takes four Aleve per day for a number of years for treatment of chronic arthritic pain. She takes recently Ibuprofen 1000 mg on occasion. She drinks 2-3 cups of coffee a day. The patient states that despite this medical regimen, she has been pretty much headache free for several years. Gastroesophageal reflux disease. Anxiety and depression. Arthritis. Positive HLA-B27 serology suggesting ankylosing spondylitis. Chronic upper back and neck pain. Chronic low back pain. PAST SURGICAL HISTORY: None. SOCIAL HISTORY: The patient smokes one back of tobacco per day, drinks 1-2 alcoholic beverages per night. Denies any recreational drug use. FAMILY HISTORY: Children with migraine headaches. Father with migraine headaches. REVIEW OF SYSTEMS: 14-point review of systems is obtained, negative except for as per the history of present illness (HPI). PHYSICAL EXAMINATION: Blood pressure 115/71, pulse 52, temperature 98.3 degrees Fahrenheit, respiratory rate is 18. Pain presently is 5 out of 10. The patient is alert, oriented to person, place and time, speech, language, comprehension for petitioner are intact. Pupils are 3 mm round, reactive to light. Extraocular movements are intact in all directions without nystagmus. Sensation V1, V2, V3 is intact to light touch. No facial asymmetry on activation. Palate elevates symmetrically. Tongue is midline. No weakness of sternocleidomastoids bilaterally. There is slight tenderness in the upper trapezius region in regards to tenderness and pain in the musculature. Neck is supple. There is no meningismus on examination. There is no pronator drift. Strength is 5 out of 5 in bilateral deltoid, biceps, triceps, ileus psoas, quadriceps, anterior tibialis, extensor hallices longus, deep tendon reflexes are 2+ throughout. Babinski signs are absent. Sensory is intact to light touch. Temperature in all four extremities. Romberg testing is negative. Gait is normal. Coordination normal. [id number], [id number] without any signs of ataxia or dysphasia. ASSESSMENT: 1. Thunderclap headache of unclear etiology. The patient has been ruled out to have had a subarachnoid hemorrhage based on spinal tape. Absence of Xanthochromia. Absence of MR angiogram aneurysms or any CT evidence of hemorrhage at this time. Since the headaches started over a week ago, it is quite possible that a small subarachnoid hemorrhage could have occurred and been re-absorbed. The patient's headaches are improving presently and should continue to improve and resolve on their own. There does not appear to be etiology of aseptic meningitis at this time. 2. Cannot entirely exclude medication overuse headache as a result of excessive Aleve and Ibuprofen use. PLAN: 1. Start Zonisamide 50 mg tonight with plans to increase to 100 mg daily. 2. Continue Valium 2 mg every 8 hours as needed severe pain. 3. Start Zofran 4 mg every 8 hours as needed nausea. 4. Start Benadryl 50 mg IV every 12 hours as needed severe pain migraine. 5. Start prednisone tapering dose 60 mg times 2 days, 40 mg times 2 days, 20 mg times 2 days, 10 mg times 2 days then stop. 6. Continue with one dose IV Solu-Medrol 125 mg today. 7. Continue with Zonisamide 100 mg by mouth nightly for the next 1-2 months for preventative headache management therapy. Avoid narcotics, benzodiazepines, IV medications moving forward after 24 hours. Once the patient's headaches start to stabilize, switch to by mouth medications for discharge planning to home. History obtained from both the patient and the patient's boyfriend.
[2016-10-18] MEDS ORDERED: predniSONE 20 MG TAB PO SCH (09:00)
[2016-10-20] MEDS ORDERED: predniSONE 10 MG TAB PO SCH (09:00)
== END 2016-10-15 14:35 | disposition home or self-care (01) | DRG 54 ==
LOC: M ED 23:40 → M ED INP 10-13 06:20 → M PCU 10-13 19:21 → M PED 10-14 16:48
PROVIDERS: ADMIT Internal Medicine; ATTEND Internal Medicine
DX: G44.53 Primary thunderclap headache (principal); D59.9 Acquired hemolytic anemia, unspecified; F17.200 Nicotine dependence, unspecified, uncomplicated; Z79.899 Other long term (current) drug therapy; K21.9 Gastro-esophageal reflux disease without esophagitis; F32.9 Major depressive disorder, single episode, unspecified; M79.7 Fibromyalgia; M45.9 Ankylosing spondylitis of unspecified sites in spine; F41.9 Anxiety disorder, unspecified; Z79.52 Long term (current) use of systemic steroids

== ENCOUNTER → 2016-10-12 | Outpatient (CLI) | payer BC ==
[~2016-10-12] MED LIST changes: +ALEV220T26 PO; +BACITAB PO; +BENA25CA4 PO; +DICL75TA PO; +IBUPOTC PO; +IMIT100T PO; +NORC1TAB4 PO; +PRED10TA2 PO; +REGL10TA6 PO; +ZANA4TAB PO; +ZONE1CAP PO; +ZYRT10TA2 PO; +[UNRECOGNIZED DRUG - OTHER]
[2016-10-12 14:25] LABS: ABG BASE EXCESS -1.3 (-2.0-2.0); ABG HCO3 22.5 MEQ/L (22.0-26.0); ABG PARTIAL PRESSURE CO2 35.3 mmHg (35.0-45.0); ABG PARTIAL PRESSURE O2 90.9 mmHg (75.0-100.0); ABG STANDARD HCO3 23.4 MEQ/L (22.0-26.0); ABG TOTAL CO2 23.6 MEQ/L (22.0-29.0); ABG pH (ARTERIAL) 7.423 UNITS (7.350-7.450)
== END ==
LOC: M LAB 12:51
PROVIDERS: ATTEND Physician Assistant
DX: R51 Headache (principal)

== ENCOUNTER → 2016-10-24 | Outpatient (REF) | payer BC ==
[~2016-10-24] MED LIST changes: +ALEV220T26 PO; +BACITAB PO; +DICL75TA PO; +IBUPOTC PO; +IMIT100T PO; +PRED10TA2 PO; +REGL10TA6 PO; +ZANA4TAB PO; +ZONE1CAP PO; +[UNRECOGNIZED DRUG - OTHER]
[2016-10-24 18:37] LABS: ALBUMIN 3.9 GM/DL (3.2-5.2); ALBUMIN/GLOBULIN RATIO 1.26 (1.00-1.93); ALKALINE PHOSPHATASE 64 U/L (45-117); ALT/SGPT 23 U/L (12-78); ANION GAP 6 MEQ/L (8-16); AST/SGOT 9 U/L (15-37); BILIRUBIN,TOTAL 0.2 MG/DL (0.2-1.0); BLOOD UREA NITROGEN 17 MG/DL (7-18); CALCIUM LEVEL 8.8 MG/DL (8.5-10.1); CARBON DIOXIDE LEVEL 27 MEQ/L (21-32); CHLORIDE LEVEL 106 MEQ/L (98-107); CREATININE FOR GFR 0.85 MG/DL (0.55-1.02); GLOMERULAR FILTRATION RATE > 60.0 (>51); GLUCOSE, FASTING 82 MG/DL (70-105); POTASSIUM SERUM 4.5 MEQ/L (3.5-5.1); SODIUM LEVEL 139 MEQ/L (136-145)
[2016-10-24 18:57] LABS: BASO % 0.6 % (0.0-1.0); EOS # 0.3 K/mm3 (0.0-0.50); EOS % 3.7 % (0.0-3.0); LARGE UNSTAINED CELL # 0.1 K/mm3 (0.0-0.4); LYMPH # 1.5 K/mm3 (1.5-4.5); LYMPH % 15.9 % (24.0-44.0); MEAN CORPUSCULAR HEMOGLOBIN 31.8 pg (27.0-33.0); MEAN CORPUSCULAR HGB CONC 32.8 g/dl (32.0-36.5); MEAN CORPUSCULAR VOLUME 97.1 fl (80.0-96.0); MONO # 0.4 K/mm3 (0.0-0.8); MONO % 5.1 % (0.0-5.0); NEUTROPHILS # 6.4 K/mm3 (1.8-7.7); NEUTROPHILS % 73.6 % (36.0-66.0); PLATELET COUNT, AUTOMATED 407 k/mm3 (150-450); WHITE BLOOD COUNT 8.6 K/mm3 (4.0-10.0)
[2016-10-24 20:31] LABS: ERYTHROCYTE SEDIMENTATION RATE 7 mm/hr (0-30)
[2016-10-27 10:14] LABS: AMITRIPTYLINE None Detected (Not Estab.); NORTRIPTYLINE None Detected (Not Estab.); SJOGREN'S ANTI SS-A <0.2 AI (0.0-0.9); SJOGREN'S ANTI SS-B <0.2 AI (0.0-0.9)
== END ==
LOC: M LABNEURO 11:43
PROVIDERS: ATTEND Psychiatry & Neurology Neurology
DX: R51 Headache (principal)
CPT/HCPCS: 36415; 80053; 80203; 85025; 85652; 86038; G0480

== ENCOUNTER → 2016-11-11 | Outpatient (CLI) | payer BC ==
--- NOTE | 2016-11-11 18:34 | REP ---
HISTORY: Neck pain. No trauma. The patient states she has had neck pain for months. Today's exam is compared to 04/27/2011. Vertebral body height and alignment is essentially unchanged from the prior examination. Disc spaces are symmetric and well maintained, status quo. The facet joints are again seen to be well-aligned bilaterally. There is limitation of flexion and extension radiographically. The intervertebral foramina are again seen to be ample bilaterally and the neural canal does not appear to be encroached upon. The dens cannot be effectively evaluated secondary to the superimposition of osseous structures and/or dentition on all views. Although this plain radiographic evaluation of the cervical spine shows no evidence of a fracture, it should be remembered that CT is much more sensitive than plain radiography of the C-spine in detecting fractures. If this examination was ordered to rule out a fracture, then CT of the cervical spine is recommended. IMPRESSION: Stable appearing cervical spine series when compared to 04/27/2011. Signed by Kelby Stein DO 11/14/2016 04:42 P
== END ==
LOC: M LRY 11:22
PROVIDERS: ATTEND Physician Assistant
DX: M54.2 Cervicalgia (principal)

== ENCOUNTER → 2017-02-20 | Outpatient (CLI) | payer BC ==
[2017-02-20 13:24] LABS: HEMOGLOBIN 13.4 g/dl (12.0-16.0); MEAN CORPUSCULAR HEMOGLOBIN 31.6 pg (27.0-33.0); MEAN CORPUSCULAR HGB CONC 33.5 g/dl (32.0-36.5); MEAN CORPUSCULAR VOLUME 94.3 fl (80.0-96.0); PLATELET COUNT, AUTOMATED 359 10^3/uL (150-450); RED BLOOD COUNT 4.24 10^6/uL (4.00-5.40); RED CELL DISTRIBUTION WIDTH 12.6 % (11.5-14.5); WHITE BLOOD COUNT 8.4 10^3/uL (4.0-10.0)
[2017-02-20 13:55] LABS: ANION GAP 7 MEQ/L (8-16); BLOOD UREA NITROGEN 17 MG/DL (7-18); CALCIUM LEVEL 8.7 MG/DL (8.5-10.1); CARBON DIOXIDE LEVEL 28 MEQ/L (21-32); CHLORIDE LEVEL 108 MEQ/L (98-107); CREATININE FOR GFR 0.81 MG/DL (0.55-1.02); GLOMERULAR FILTRATION RATE > 60.0 (>51); GLUCOSE, FASTING 85 MG/DL (70-105); POTASSIUM SERUM 4.1 MEQ/L (3.5-5.1); SODIUM LEVEL 143 MEQ/L (136-145)
== END ==
LOC: M LAB 12:01
DX: Z00.00 Encounter for general adult medical examination without abnormal findings (principal)
CPT/HCPCS: 71046

== ENCOUNTER 2017-02-22 08:12 | Day surgery (SDC) | payer BC ==
[~2017-02-22 08:12] MED LIST changes: -ALEV220C2 PO; -ALEV220T26 PO; -BACITAB PO; -BENA25CA4 PO; -DEXI60CA2 PO; -DICL75TA PO; -DULO1CAP3 PO; -IBUP200T45 PO; -IBUPOTC PO; -IMIT100T PO; +LIDOCAINE 2% INJ 100 MG/5 ML SDV (FOR ANES.) As Ordered; +MIDAZOLAM INJ 2 MG/2 ML VIAL (J2250) As Ordered; -NORC1TAB4 PO; +ONDANSETRON 4MG/2ML VIAL (J2405) As Ordered; -PRED10TA2 PO; +PROPOFOL 200 MG/20 ML VIAL As Ordered; -REGL10TA6 PO; -TRET0.02 EXT; -ZANA4TAB PO; -ZONE1CAP PO; -ZYRT10TA2 PO; -[UNRECOGNIZED DRUG - OTHER]; +dexameTHASONE 4 MG/ML 1ML VIAL (J1100) As Ordered; +fentaNYL 100 MCG/2 ML INJECTION (J3010) As Ordered
[2017-02-22] MEDS: LR 1,000 ML IV (08:45)
[2017-02-22] MEDS ORDERED: SCOPOLAMINE 1MG TRANSDERMAL PATCH As Ordered (08:53)
[2017-02-22] MEDS: SCOPOLAMINE 1MG TRANSDERMAL PATCH TOP (08:59)
[2017-02-22] MEDS: BUPIVACAINE HCL 0.5% 10 ML VIAL As Ordered (10:20)
[2017-02-22] MEDS ORDERED: METOCLOPRAMIDE INJ 10MG/2ML VIAL (J2765) As Ordered (10:23)
[2017-02-22] MEDS: LIDOCAINE 1% MDV 20ML VIAL As Ordered (10:25)
[2017-02-22] MEDS: dexameTHASONE 4 MG/ML 1ML VIAL (J1100) As Ordered ×4 (10:40→11:40)
[2017-02-22] MEDS ORDERED: PROPOFOL 200 MG/20 ML VIAL As Ordered ×2 (11:00)
== END 2017-02-22 13:30 | disposition home or self-care (01) ==
LOC: M SDC 08:12
DX: M20.11 Hallux valgus (acquired), right foot (principal); M21.621 Bunionette of right foot; K21.9 Gastro-esophageal reflux disease without esophagitis; F41.9 Anxiety disorder, unspecified; F32.9 Major depressive disorder, single episode, unspecified; J30.2 Other seasonal allergic rhinitis; K44.9 Diaphragmatic hernia without obstruction or gangrene; Z79.899 Other long term (current) drug therapy; Z72.0 Tobacco use; Z98.51 Tubal ligation status
CPT/HCPCS: 28296

== ENCOUNTER → 2018-01-24 | Outpatient (REF) | payer BC ==
[2018-01-24 13:23] LABS: BASO # 0.1 10^3/uL (0.0-0.2); BASO % 0.8 % (0.0-1.0); EOS # 0.3 10^3/uL (0.0-0.50); EOS % 3.6 % (0.0-3.0); HEMATOCRIT 42.1 % (36.0-47.0); HEMOGLOBIN 13.8 g/dl (12.0-15.5); IMMATURE GRANULOCYTE % 0.4 % (0-3.0); LYMPH # 1.8 10^3/uL (1.5-4.5); LYMPH % 20.2 % (24.0-44.0); MEAN CORPUSCULAR HEMOGLOBIN 31.5 pg (27.0-33.0); MEAN CORPUSCULAR HGB CONC 32.8 g/dl (32.0-36.5); MEAN CORPUSCULAR VOLUME 96.1 fl (80.0-96.0); MONO # 0.6 10^3/uL (0.0-0.8); NEUTROPHILS # 6.1 10^3/uL (1.8-7.7); PLATELET COUNT, AUTOMATED 364 10^3/uL (150-450); RED BLOOD COUNT 4.38 10^6/uL (4.00-5.40); RED CELL DISTRIBUTION WIDTH 13.3 % (11.5-14.5)
[2018-01-24 14:06] LABS: ALBUMIN 3.6 GM/DL (3.2-5.2); ALBUMIN/GLOBULIN RATIO 1.16 (1.00-1.93); ALKALINE PHOSPHATASE 66 U/L (45-117); ALT/SGPT 20 U/L (12-78); ANION GAP 8 MEQ/L (8-16); AST/SGOT 13 U/L (7-37); BILIRUBIN,TOTAL 0.3 MG/DL (0.2-1.0); BLOOD UREA NITROGEN 20 MG/DL (7-18); CALCIUM LEVEL 8.6 MG/DL (8.5-10.1); CARBON DIOXIDE LEVEL 27 MEQ/L (21-32); CHLORIDE LEVEL 107 MEQ/L (98-107); CHOLESTEROL LEVEL 272 MG/DL (<200); CHOLESTEROL RISK RATIO 4.945 (<5); CREATININE FOR GFR 0.78 MG/DL (0.55-1.30); FREE T4 0.84 NG/DL (0.76-1.46); GLOMERULAR FILTRATION RATE > 60.0 (>51); GLUCOSE, FASTING 95 MG/DL (70-100); HDL CHOLESTEROL 55 MG/DL (>40); LDL CHOLESTEROL 187 MG/DL (<100); NON-HDL-C 217 MG/DL; POTASSIUM SERUM 4.4 MEQ/L (3.5-5.1); SODIUM LEVEL 142 MEQ/L (136-145); TOTAL 25(OH) VITAMIN D 36.3 NG/ML (30.0-100.0); TOTAL PROTEIN 6.7 GM/DL (6.4-8.2); TRIGLYCERIDES LEVEL 148 MG/DL (<150)
== END ==
LOC: M SFHCADAM 07:59
DX: K21.9 Gastro-esophageal reflux disease without esophagitis (principal); F17.210 Nicotine dependence, cigarettes, uncomplicated; Z13.220 Encounter for screening for lipoid disorders; Z13.0 Encounter for screening for diseases of the blood and blood-forming organs and certain disorders involving the immune mechanism
CPT/HCPCS: 84443

== ENCOUNTER → 2018-05-25 | Outpatient (REF) | payer BC ==
[~2018-05-25] MED LIST changes: +ALEV220C2 PO; +ALEV220T26 PO; +BACITAB PO; +BENA25CA4 PO; +DEXI60CA2 PO; +DICL75TA PO; +DULO1CAP3 PO; +HYDR-3713 PO; +IBUP200T45 PO; +IBUPOTC PO; +IMIT100T PO; -LIDOCAINE 2% INJ 100 MG/5 ML SDV (FOR ANES.) As Ordered; -MIDAZOLAM INJ 2 MG/2 ML VIAL (J2250) As Ordered; +NORC1TAB7 PO; -ONDANSETRON 4MG/2ML VIAL (J2405) As Ordered; +PRED10TA2 PO; -PROPOFOL 200 MG/20 ML VIAL As Ordered; +REGL10TA6 PO; +TRET0.02 EXT; +ZANA4TAB PO; +ZONE1CAP PO; +ZYRT10CA5 PO; +[UNRECOGNIZED DRUG - OTHER]; -dexameTHASONE 4 MG/ML 1ML VIAL (J1100) As Ordered; -fentaNYL 100 MCG/2 ML INJECTION (J3010) As Ordered
[2018-05-30 14:21] LABS: HPV HYBRID CAPTURE II Negative (Negative)
== END ==
LOC: M SFHCWAGY 11:27
PROVIDERS: ATTEND Nurse Practitioner Family
DX: Z12.4 Encounter for screening for malignant neoplasm of cervix (principal)
CPT/HCPCS: 87624; G0123

== ENCOUNTER → 2019-06-10 | Outpatient (CLI) | payer BC ==
[~2019-06-10] MED LIST changes: -DULO1CAP3 PO; +DULO1CAP6 PO
--- NOTE | 2019-06-10 13:24 | REPMRS ---
Patient History The patient states she had a clinical breast exam in May 2019. Family history of ovarian cancer under age 50 in maternal aunt. Took hormonal contraceptives for 1 year. Digital Woman Screen Mammo: June 10, 2019 - Exam #: [id number] Bilateral CC and MLO view(s) were taken. Technologist: Teresa Wright Technologist Prior study comparison: May 25, 2018, bilateral digital woman screen mammo performed at [facility]. May 24, 2017, digital woman screen mammo performed at [facility]. April 04, 2016, digital woman screen mammo performed at [facility]. FINDINGS: There are scattered fibroglandular densities. There has been no change in the appearance of the mammogram from the prior studies. There is a mild amount of scattered fibroglandular density which is fairly symmetric. There is no interval development of dominant mass, architectural distortion, or grouped microcalcification suggestive of malignancy. 3-D tomosynthesis shows no additional findings. Assessment: BI-RADS/ACR category 1 mammogram. Negative Mammogram. Recommendation Routine screening mammogram of both breasts in 1 year (for women over age 40). This patient's Lifetime Breast Cancer Risk is estimated at 6.4 %. This mammogram was interpreted with the aid of an FDA-approved computer-aided dectection system. Electronically Signed By: Barry Muir MD 06/10/19 [id number]
== END ==
LOC: M WHC 11:06
PROVIDERS: ATTEND Nurse Practitioner Family
DX: Z12.31 Encounter for screening mammogram for malignant neoplasm of breast (principal); Z80.41 Family history of malignant neoplasm of ovary

== ENCOUNTER → 2020-02-28 | Outpatient (REF) | payer OTHER ==
[2020-02-28 13:25] LABS: BASO # 0.1 10^3/uL (0.0-0.2); BASO % 0.6 % (0.0-1.0); EOS # 0.1 10^3/uL (0.0-0.5); EOS % 1.4 % (0.0-3.0); HEMATOCRIT 42.1 % (36.0-47.0); HEMOGLOBIN 13.8 g/dl (12.0-15.5); LYMPH # 1.5 10^3/uL (1.5-5.0); LYMPH % 19.3 % (24.0-44.0); MEAN CORPUSCULAR HEMOGLOBIN 31.7 pg (27.0-33.0); MEAN CORPUSCULAR HGB CONC 32.8 g/dl (32.0-36.5); MEAN CORPUSCULAR VOLUME 96.8 fl (80.0-96.0); MONO # 0.5 10^3/uL (0.0-0.8); MONO % 5.9 % (0.0-5.0); NEUTROPHILS # 5.8 10^3/uL (1.5-8.5); NEUTROPHILS % 72.3 % (36.0-66.0); PLATELET COUNT, AUTOMATED 372 10^3/uL (150-450); RED BLOOD COUNT 4.35 10^6/uL (4.00-5.40)
[2020-02-28 13:50] LABS: ALBUMIN 3.8 GM/DL (3.2-5.2); ALT/SGPT 17 U/L (12-78); BILIRUBIN,TOTAL 0.4 MG/DL (0.2-1.0); BLOOD UREA NITROGEN 16 MG/DL (7-18); CALCIUM LEVEL 8.7 MG/DL (8.5-10.1); CARBON DIOXIDE LEVEL 29 MEQ/L (21-32); CHLORIDE LEVEL 108 MEQ/L (98-107); CHOLESTEROL LEVEL 271 MG/DL (<200); CHOLESTEROL RISK RATIO 4.927 (<5); GLOMERULAR FILTRATION RATE > 60.0 (>51); GLUCOSE, FASTING 103 MG/DL (70-100); HDL CHOLESTEROL 55 MG/DL (>40); LDL CHOLESTEROL 188 MG/DL (<100); NON-HDL-C 216 MG/DL; POTASSIUM SERUM 4.4 MEQ/L (3.5-5.1); SODIUM LEVEL 142 MEQ/L (136-145); TOTAL PROTEIN 6.5 GM/DL (6.4-8.2); TRIGLYCERIDES LEVEL 139 MG/DL (<150)
== END ==
LOC: M SFHCADAM 09:09
PROVIDERS: ATTEND Physician Assistant Medical
DX: Z00.00 Encounter for general adult medical examination without abnormal findings (principal); K21.9 Gastro-esophageal reflux disease without esophagitis; E78.00 Pure hypercholesterolemia, unspecified; F17.210 Nicotine dependence, cigarettes, uncomplicated

== ENCOUNTER → 2020-06-10 | Outpatient (REF) | payer OTHER | LOC: M LAB REF 13:14 | PROVIDERS: ATTEND Ophthalmology | DX: H02.413 Mechanical ptosis of bilateral eyelids (principal) ==

== ENCOUNTER → 2020-07-15 | Outpatient (CLI) | payer OTHER ==
--- NOTE | 2020-07-15 10:27 | REPMRS ---
Patient History The patient states she had a clinical breast exam in July 2020. Family history of ovarian cancer under age 50 in maternal aunt. Took hormonal contraceptives for 1 year. No breast complaints today Patient signed the MRS sheet Priors on PACS Patient Identification Verified Digital Woman Screen Mammo: July 15, 2020 - Exam #: [id number] Bilateral CC and MLO view(s) were taken. Technologist: Danielle Ascencio, Technologist Prior study comparison: June 10, 2019, bilateral digital woman screen mammo performed at [facility]. May 25, 2018, bilateral digital woman screen mammo performed at [facility]. FINDINGS: There are scattered fibroglandular densities. Screening. Digital screening (2D) mammography was performed bilaterally in the CC and MLO projections. Additionally, breast tomosynthesis (3D mammography) was performed bilaterally in the CC and MLO projections. Todays exam was compared to the prior exams. By history, the patient has no complaints of a palpable breast abnormality or other significant breast complaints. The breasts are unchanged in size and shape. There are no isaias-soft tissue densities or spiculated masses. There is no internal architectural distortion. There are no suspicious isaias-calcific clusters. Skin thickening or nipple retraction is not present. IMPRESSION: BI-RADS Category 2- Benign Findings. There is no evidence of malignant alteration of the breasts. Followup examination recommended in one year. The Volpara volumetric breast density category is B, there are scattered areas of fibroglandular density. This mammogram was read with the assistance of octoScope,an FDA approved computer aided detection system for mammography. The lifetime Tyrer-Cuzick score is 6.2 % Negative x-ray reports should not delay surgical consultation if a dominant or clinically suspicious mass is present. Not all breast cancers can be identified by mammography. Therefore, we recommend that you continue to perform regular breast self-examination and physical examination and then promptly contact your physician of any concerns or changes. Adenosis and dense breasts may obscure an underlying neoplasm. Assessment: BI-RADS/ACR category 2 mammogram. Benign Findings. Recommendation Routine screening mammogram of both breasts in 1 year. Electronically Signed By: Kelby Stein DO 07/15/20 [id number]
== END ==
LOC: M WHC 09:14
PROVIDERS: ATTEND Nurse Practitioner Women's Health
DX: Z12.31 Encounter for screening mammogram for malignant neoplasm of breast (principal)

== ENCOUNTER → 2020-07-15 | Outpatient (REF) | payer OTHER | LOC: M SFHCWAGY 14:04 | PROVIDERS: ATTEND Nurse Practitioner Women's Health | DX: Z12.4 Encounter for screening for malignant neoplasm of cervix (principal) | CPT/HCPCS: 87624; G0123 ==

== ENCOUNTER → 2021-05-06 | Outpatient (REF) | payer OTHER ==
[~2021-05-06] MED LIST changes: -IBUP200T45 PO; +IBUP200T46 PO
[2021-05-06 13:02] LABS: BASO # 0.1 10^3/uL (0.0-0.2); BASO % 0.8 % (0.0-1.0); EOS # 0.1 10^3/uL (0.0-0.5); EOS % 1.5 % (0.0-3.0); HEMATOCRIT 42.5 % (36.0-47.0); LYMPH # 1.7 10^3/uL (1.5-5.0); LYMPH % 21.4 % (24.0-44.0); MEAN CORPUSCULAR HEMOGLOBIN 31.3 pg (27.0-33.0); MEAN CORPUSCULAR HGB CONC 32.9 g/dl (32.0-36.5); MEAN CORPUSCULAR VOLUME 95.1 fl (80.0-96.0); MONO # 0.6 10^3/uL (0.0-0.8); MONO % 7.2 % (2.0-8.0); NEUTROPHILS # 5.3 10^3/uL (1.5-8.5); NEUTROPHILS % 68.7 % (36.0-66.0); PLATELET COUNT, AUTOMATED 379 10^3/uL (150-450); RED BLOOD COUNT 4.47 10^6/uL (4.00-5.40); WHITE BLOOD COUNT 7.8 10^3/uL (4.0-10.0)
[2021-05-06 13:15] LABS: HEMOGLOBIN A1c 5.5 %
[2021-05-06 13:35] LABS: ALT/SGPT 14 U/L (12-78); BILIRUBIN,TOTAL 0.5 MG/DL (0.2-1.0); BLOOD UREA NITROGEN 14 MG/DL (7-18); CALCIUM LEVEL 9.3 MG/DL (8.5-10.1); CARBON DIOXIDE LEVEL 30 MEQ/L (21-32); CHLORIDE LEVEL 109 MEQ/L (98-107); CHOLESTEROL LEVEL 294 MG/DL (<200); CHOLESTEROL RISK RATIO 5.068 (<5); CREATININE FOR GFR 0.77 MG/DL (0.55-1.30); GLOMERULAR FILTRATION RATE > 60.0 (>51); GLUCOSE, FASTING 102 MG/DL (70-100); HDL CHOLESTEROL 58 MG/DL (>40); LDL CHOLESTEROL 194 MG/DL (<100); NON-HDL-C 236 MG/DL; RHEUMATOID FACTOR QUANT < 10.0 IU/ML (<15.0); SODIUM LEVEL 141 MEQ/L (136-145); TOTAL PROTEIN 6.8 GM/DL (6.4-8.2); TRIGLYCERIDES LEVEL 210 MG/DL (<150)
[2021-05-07 23:07] LABS: ANA (HEP2) Positive (.)
== END ==
LOC: M SFHCADAM 10:12
PROVIDERS: ATTEND Physician Assistant Medical
DX: E78.2 Mixed hyperlipidemia (principal); F17.210 Nicotine dependence, cigarettes, uncomplicated; K21.9 Gastro-esophageal reflux disease without esophagitis; K44.9 Diaphragmatic hernia without obstruction or gangrene; M54.50 Low back pain, unspecified; M54.2 Cervicalgia

== ENCOUNTER → 2021-06-29 | Outpatient (REF) | payer OTHER ==
[2021-06-29 13:13] LABS: C REACTIVE PROTEIN QUANTITATIV 1.24 MG/DL (0.00-0.30)
[2021-07-01 11:16] LABS: DRVV SCREEN 36.1 SEC
== END ==
LOC: M SFHCADAM 09:18
PROVIDERS: ATTEND Physician Assistant Medical
DX: R76.8 Other specified abnormal immunological findings in serum (principal)

== ENCOUNTER → 2021-07-21 | Outpatient (CLI) | payer OTHER | LOC: M WHC 09:20 | PROVIDERS: ATTEND Obstetrics & Gynecology | DX: Z12.31 Encounter for screening mammogram for malignant neoplasm of breast (principal) ==

== ENCOUNTER → 2021-07-21 | Outpatient (REF) | payer OTHER | LOC: M SFHCWAGY 12:54 | PROVIDERS: ATTEND Obstetrics & Gynecology | DX: Z12.4 Encounter for screening for malignant neoplasm of cervix (principal) | CPT/HCPCS: 87624; G0123 ==

== ENCOUNTER → 2021-10-11 | Outpatient (CLI) | payer OTHER ==
[~2021-10-11] MED LIST changes: +APPL300T4 PO; +ESTR0.1C5 VG; +OMEP40CA4 PO
== END ==
LOC: M LABSMTC 09:50
PROVIDERS: ATTEND Anesthesiology
DX: Z01.812 Encounter for preprocedural laboratory examination (principal); Z20.822 Contact with and (suspected) exposure to COVID-19

== ENCOUNTER 2021-10-14 10:35 | Day surgery (SDC) | payer OTHER ==
[~2021-10-14] VITALS: Ht 157.5 cm; Wt 62.6 kg
[~2021-10-14 10:35] MED LIST changes: +NS 1,000 ML IV ONE
[2021-10-14] MEDS ORDERED: LIDOCAINE 2% 100MG/5ML SDV (FOR ANES.) As Ordered ONE (13:32)
[2021-10-14] MEDS ORDERED: propofoL 200 MG/20 ML VIAL As Ordered ONE ×2 (13:32→13:54)
[2021-10-14 14:20] VITALS: BP 130/67
== END 2021-10-14 14:29 | disposition home or self-care (01) ==
LOC: M OPP 10:35
PROVIDERS: ATTEND Surgery
DX: D12.3 Benign neoplasm of transverse colon (principal); K63.5 Polyp of colon; K57.30 Diverticulosis of large intestine without perforation or abscess without bleeding; K21.00 Gastro-esophageal reflux disease with esophagitis, without bleeding; R19.5 Other fecal abnormalities; F32.9 Major depressive disorder, single episode, unspecified; F41.9 Anxiety disorder, unspecified; Z79.51 Long term (current) use of inhaled steroids; Z79.899 Other long term (current) drug therapy; Z88.4 Allergy status to anesthetic agent

== ENCOUNTER → 2021-12-06 | Outpatient (REF) | payer OTHER ==
[~2021-12-06] MED LIST changes: -NS 1,000 ML IV ONE
[2021-12-06 13:16] LABS: BASO # 0.1 10^3/uL (0.0-0.2); BASO % 0.5 % (0.0-1.0); EOS # 0.2 10^3/uL (0.0-0.5); EOS % 1.8 % (0.0-3.0); HEMATOCRIT 42.2 % (36.0-47.0); HEMOGLOBIN 13.5 g/dl (12.0-15.5); LYMPH # 1.7 10^3/uL (1.5-5.0); LYMPH % 16.6 % (24.0-44.0); MEAN CORPUSCULAR HEMOGLOBIN 31.5 pg (27.0-33.0); MEAN CORPUSCULAR VOLUME 98.4 fl (80.0-96.0); MONO # 0.6 10^3/uL (0.0-0.8); MONO % 5.8 % (2.0-8.0); NEUTROPHILS # 7.4 10^3/uL (1.5-8.5); NEUTROPHILS % 74.7 % (36.0-66.0); PLATELET COUNT, AUTOMATED 374 10^3/uL (150-450); RED BLOOD COUNT 4.29 10^6/uL (4.00-5.40)
[2021-12-06 13:30] LABS: APPEARANCE, URINE MANUAL CLEAR (CLEAR); COLOR, URINE MANUAL YELLOW (YELLOW)
[2021-12-06 13:31] LABS: BILIRUBIN, URINE MANUAL NEGATIVE (NEGATIVE); BLOOD URINE MANUAL NEGATIVE (NEGATIVE); GLUCOSE, URINE (UA) MANUAL NEGATIVE (NEGATIVE); KETONE, URINE MANUAL NEGATIVE (NEGATIVE); LEUKOCYTE ESTERASE, URINE MAN NEGATIVE (NEGATIVE); NITRITE, URINE MANUAL NEGATIVE (NEGATIVE); PROTEIN, URINE MANUAL NEGATIVE (NEGATIVE); SPECIFIC GRAVITY,URINE MANUAL 1.005 (1.002-1.035); UROBILINOGEN, URINE MANUAL NORMAL (NORMAL)
[2021-12-06 13:54] LABS: ERYTHROCYTE SEDIMENTATION RATE 12 mm/hr (0-30)
[2021-12-06 13:58] LABS: C REACTIVE PROTEIN QUANTITATIV 0.95 MG/DL (0.00-0.30); MAGNESIUM LEVEL 2.1 MG/DL (1.8-2.4); PHOSPHORUS LEVEL 3.4 MG/DL (2.5-4.9)
[2021-12-06 14:36] LABS: TOTAL PROTEIN,RANDOM URINE 20.2 MG/DL (0.0-12.0)
[2021-12-06 14:45] LABS: TOTAL 25(OH) VITAMIN D 31.4 NG/ML (30.0-100.0)
== END ==
LOC: M SFHCRHEU 10:14
PROVIDERS: ATTEND Internal Medicine
DX: R76.8 Other specified abnormal immunological findings in serum (principal); M79.10 Myalgia, unspecified site; M25.40 Effusion, unspecified joint

== ENCOUNTER → 2021-12-13 | Outpatient (CLI) | payer OTHER | LOC: M PLAIMG 12:11 | PROVIDERS: ATTEND Internal Medicine | DX: M43.06 Spondylolysis, lumbar region (principal); M25.40 Effusion, unspecified joint ==

== ENCOUNTER → 2021-12-13 | Outpatient (REF) | payer OTHER ==
[2021-12-13 13:38] LABS: ALBUMIN 3.6 GM/DL (3.2-5.2); ALT/SGPT 15 U/L (12-78); BILIRUBIN,TOTAL 0.5 MG/DL (0.2-1.0); BLOOD UREA NITROGEN 17 MG/DL (7-18); CALCIUM LEVEL 9.1 MG/DL (8.5-10.1); CARBON DIOXIDE LEVEL 26 MEQ/L (21-32); CHLORIDE LEVEL 108 MEQ/L (98-107); CHOLESTEROL LEVEL 268 MG/DL (<200); CHOLESTEROL RISK RATIO 4.466 (<5); CREATININE FOR GFR 0.84 MG/DL (0.55-1.30); GLOMERULAR FILTRATION RATE > 60.0 (>51); GLUCOSE, FASTING 79 MG/DL (70-100); HDL CHOLESTEROL 60 MG/DL (>40); LDL CHOLESTEROL 171 MG/DL (<100); NON-HDL-C 208 MG/DL; POTASSIUM SERUM 4.3 MEQ/L (3.5-5.1); SODIUM LEVEL 138 MEQ/L (136-145); TOTAL PROTEIN 6.7 GM/DL (6.4-8.2); TRIGLYCERIDES LEVEL 185 MG/DL (<150)
[2021-12-13 14:06] LABS: TOTAL 25(OH) VITAMIN D 28.7 NG/ML (30.0-100.0)
== END ==
LOC: M SFHCADAM 11:08
PROVIDERS: ATTEND Physician Assistant Medical
DX: E78.00 Pure hypercholesterolemia, unspecified (principal); E78.2 Mixed hyperlipidemia; F17.210 Nicotine dependence, cigarettes, uncomplicated; K21.9 Gastro-esophageal reflux disease without esophagitis

== ENCOUNTER → 2022-03-22 | Outpatient (CLI) | payer OTHER | LOC: M PLAIMG 12:12 | PROVIDERS: ATTEND Internal Medicine | DX: M54.9 Dorsalgia, unspecified (principal) ==

== ENCOUNTER → 2022-08-25 | Outpatient (CLI) | payer OTHER | LOC: M ADAMS 11:50 | PROVIDERS: ATTEND Physician Assistant Medical | DX: M54.2 Cervicalgia (principal); M25.511 Pain in right shoulder; M25.512 Pain in left shoulder; R05.3 Chronic cough ==

== ENCOUNTER → 2022-09-21 | Outpatient (CLI) | payer OTHER | LOC: M RAD 12:36 | PROVIDERS: ATTEND Physician Assistant Medical | DX: F17.210 Nicotine dependence, cigarettes, uncomplicated (principal) ==

== ENCOUNTER → 2022-12-13 | Outpatient (REF) | payer OTHER ==
[2022-12-13 13:37] LABS: COMPLEMENT C3 126.7 MG/DL (90.0-170.0); COMPLEMENT C4 61.1 MG/DL (12-36)
[2022-12-13 13:38] LABS: RHEUMATOID FACTOR QUANT < 3.5 IU/ML (<14)
[2022-12-15 12:54] LABS: DRVV SCREEN 41.7 SECONDS
[2022-12-15 13:16] LABS: PTT LUPUS TYPE ANTICOAG SCREEN 1.02 (0-1.20)
== END ==
LOC: M SFHCADAM 08:17
PROVIDERS: ATTEND Physician Assistant Medical
DX: M25.511 Pain in right shoulder (principal); G89.29 Other chronic pain; M25.512 Pain in left shoulder

== ENCOUNTER → 2023-01-23 | Outpatient (CLI) | payer OTHER | LOC: M RAD 16:55 | PROVIDERS: ATTEND Student in an Organized Health Care Education/Training Program | DX: J20.9 Acute bronchitis, unspecified (principal); R09.1 Pleurisy; I51.7 Cardiomegaly ==

== ENCOUNTER → 2023-01-30 | Outpatient (REF) | payer OTHER | LOC: M SFHCADAM 15:23 | PROVIDERS: ATTEND Physician Assistant Medical | DX: M25.512 Pain in left shoulder (principal); M54.6 Pain in thoracic spine ==

== ENCOUNTER → 2023-01-30 | Outpatient (CLI) | payer OTHER | LOC: M ADAMS 15:32 | PROVIDERS: ATTEND Physician Assistant Medical | DX: M25.511 Pain in right shoulder (principal); M25.512 Pain in left shoulder; M54.6 Pain in thoracic spine ==

== ENCOUNTER → 2023-02-14 | Outpatient (REF) | payer OTHER ==
[2023-02-14 13:59] LABS: BASO % 0.2 % (0.0-1.0); EOS # 0.4 10^3/uL (0.0-0.5); EOS % 4.5 % (0.0-3.0); HEMATOCRIT 36.6 % (36.0-47.0); HEMOGLOBIN 11.8 g/dl (12.0-15.5); LYMPH # 1.9 10^3/uL (1.5-5.0); LYMPH % 22.1 % (24.0-44.0); MEAN CORPUSCULAR HEMOGLOBIN 31.2 pg (27.0-33.0); MEAN CORPUSCULAR HGB CONC 32.2 g/dl (32.0-36.5); MEAN CORPUSCULAR VOLUME 96.8 fl (80.0-96.0); MONO # 0.5 10^3/uL (0.0-0.8); MONO % 5.3 % (2.0-8.0); NEUTROPHILS # 5.7 10^3/uL (1.5-8.5); NEUTROPHILS % 67.3 % (36.0-66.0); PLATELET COUNT, AUTOMATED 646 10^3/uL (150-450); RED BLOOD COUNT 3.78 10^6/uL (4.00-5.40); WHITE BLOOD COUNT 8.5 10^3/uL (4.0-10.0)
[2023-02-14 14:16] LABS: HEMOGLOBIN A1c 5.6 % (4.0-6.0)
[2023-02-14 14:28] LABS: ALBUMIN 2.7 G/DL (3.2-5.2); ALKALINE PHOSPHATASE 90 U/L (46-116); ALT/SGPT 10 U/L (7.0-40); AST/SGOT < 8 U/L (<34); BILIRUBIN,TOTAL < 0.2 MG/DL (0.3-1.2); BLOOD UREA NITROGEN 11 MG/DL (9-23); CALCIUM LEVEL 8.3 MG/DL (8.5-10.1); CARBON DIOXIDE LEVEL 30 MMOL/L (20-31); CHLORIDE LEVEL 107 MMOL/L (98-107); CHOLESTEROL LEVEL 182 MG/DL (<200); CHOLESTEROL RISK RATIO 6.16 (<5); CREATININE FOR GFR 0.64 MG/DL (0.55-1.30); GLOMERULAR FILTRATION RATE > 60.0 (>51); GLUCOSE, FASTING 76 MG/DL (60-100); HDL CHOLESTEROL 29.5 MG/DL (>40); LDL CHOLESTEROL 104.7 MG/DL (<100); NON-HDL-C 152.5 MG/DL; POTASSIUM SERUM 4.3 MMOL/L (3.5-5.1); SODIUM LEVEL 141 MMOL/L (136-145); TOTAL PROTEIN 5.9 G/DL (5.7-8.2); TRIGLYCERIDES LEVEL 239 MG/DL (<150)
[2023-02-14 14:30] LABS: THYROID STIMULATING HORMONE 1.803 uIU/ML (0.55-4.78); TOTAL 25(OH) VITAMIN D 41.5 NG/ML (20.0-100.0)
== END ==
LOC: M SFHCADAM 10:46
PROVIDERS: ATTEND Physician Assistant Medical
DX: E78.2 Mixed hyperlipidemia (principal); E78.00 Pure hypercholesterolemia, unspecified; K21.9 Gastro-esophageal reflux disease without esophagitis

== ENCOUNTER → 2023-02-16 | Outpatient (CLI) | payer OTHER | LOC: M RAD 06:43 | PROVIDERS: ATTEND Physician Assistant Medical | DX: M54.2 Cervicalgia (principal); M25.512 Pain in left shoulder; M25.511 Pain in right shoulder ==

== ENCOUNTER → 2023-03-13 | Outpatient (REF) | payer OTHER ==
[2023-03-13 15:07] LABS: BASO # 0.1 10^3/uL (0.0-0.2); BASO % 0.8 % (0.0-1.0); EOS # 0.3 10^3/uL (0.0-0.5); EOS % 4.3 % (0.0-3.0); HEMATOCRIT 38.8 % (36.0-47.0); HEMOGLOBIN 12.2 g/dl (12.0-15.5); LYMPH # 1.7 10^3/uL (1.5-5.0); LYMPH % 21.8 % (24.0-44.0); MEAN CORPUSCULAR HEMOGLOBIN 29.9 pg (27.0-33.0); MEAN CORPUSCULAR HGB CONC 31.4 g/dl (32.0-36.5); MEAN CORPUSCULAR VOLUME 95.1 fl (80.0-96.0); MONO # 0.5 10^3/uL (0.0-0.8); MONO % 6.2 % (2.0-8.0); NEUTROPHILS # 5.1 10^3/uL (1.5-8.5); NEUTROPHILS % 66.5 % (36.0-66.0); PLATELET COUNT, AUTOMATED 492 10^3/uL (150-450); RED BLOOD COUNT 4.08 10^6/uL (4.00-5.40); WHITE BLOOD COUNT 7.7 10^3/uL (4.0-10.0)
[2023-03-13 15:29] LABS: ERYTHROCYTE SEDIMENTATION RATE 39 mm/hr (0-30)
[2023-03-13 15:40] LABS: C REACTIVE PROTEIN QUANTITATIV 2.8 MG/DL (<1.0)
[2023-03-13 15:41] LABS: FERRITIN 81.9 NG/ML (7.3-270.7); FOLATE 7.2 NG/ML (>5.4)
[2023-03-13 15:42] LABS: PERCENT SATURATION 23.2 % (13.2-45.0)
== END ==
LOC: M SFHCADAM 10:24
PROVIDERS: ATTEND Physician Assistant Medical
DX: D75.839 Thrombocytosis, unspecified (principal); D64.9 Anemia, unspecified

== ENCOUNTER → 2023-04-25 | Outpatient (REF) | payer OTHER ==
[2023-04-25 13:16] LABS: ALBUMIN 3.8 G/DL (3.2-5.2); ALKALINE PHOSPHATASE 73 U/L (46-116); ALT/SGPT 13 U/L (7.0-40); AST/SGOT 13 U/L (<34); BILIRUBIN,DIRECT 0.1 MG/DL (<0.4); BILIRUBIN,TOTAL 0.6 MG/DL (0.3-1.2); BLOOD UREA NITROGEN 11 MG/DL (9-23); CALCIUM LEVEL 8.6 MG/DL (8.5-10.1); CARBON DIOXIDE LEVEL 28 MMOL/L (20-31); CHLORIDE LEVEL 108 MMOL/L (98-107); CREATININE FOR GFR 0.64 MG/DL (0.55-1.30); GLOMERULAR FILTRATION RATE > 60.0 (>51); GLUCOSE, FASTING 102 MG/DL (60-100); IMMUNOGLOBULIN A 135.8 MG/DL (40-350); POTASSIUM SERUM 4.3 MMOL/L (3.5-5.1); SODIUM LEVEL 139 MMOL/L (136-145); TOTAL PROTEIN 6.5 G/DL (5.7-8.2)
[2023-04-25 13:17] LABS: IMMUNOGLOBULIN G 728 MG/DL (650-1600)
== END ==
LOC: M SFHCRHEU 09:35
PROVIDERS: ATTEND Internal Medicine
DX: M25.40 Effusion, unspecified joint (principal)

== ENCOUNTER → 2023-05-18 | Outpatient (CLI) | payer OTHER | LOC: M PLAIMG 13:55 | PROVIDERS: ATTEND Internal Medicine | DX: M54.9 Dorsalgia, unspecified (principal) ==

== ENCOUNTER → 2023-11-14 | Outpatient (CLI) | payer OTHER | LOC: M RAD 10:19 | PROVIDERS: ATTEND Physician Assistant Medical | DX: F17.210 Nicotine dependence, cigarettes, uncomplicated (principal) ==

== ENCOUNTER → 2023-11-22 | Outpatient (CLI) | payer OTHER | LOC: M WHC 16:25 | PROVIDERS: ATTEND Obstetrics & Gynecology | DX: Z12.31 Encounter for screening mammogram for malignant neoplasm of breast (principal); R92.323 Mammographic fibroglandular density, bilateral breasts ==

== ENCOUNTER → 2023-11-29 | Outpatient (REF) | payer OTHER ==
[2023-11-29 15:52] LABS: ALBUMIN 3.8 G/DL (3.2-5.2); ALKALINE PHOSPHATASE 75 U/L (46-116); ALT/SGPT 11 U/L (7.0-40); AST/SGOT 8 U/L (<34); BILIRUBIN,DIRECT < 0.1 MG/DL (<0.4); BILIRUBIN,TOTAL 0.3 MG/DL (0.3-1.2); BLOOD UREA NITROGEN 15 MG/DL (9-23); CALCIUM LEVEL 9.3 MG/DL (8.5-10.1); CARBON DIOXIDE LEVEL 30 MMOL/L (20-31); CHLORIDE LEVEL 109 MMOL/L (98-107); CREATININE FOR GFR 0.67 MG/DL (0.55-1.30); GLOMERULAR FILTRATION RATE > 60.0 (>51); GLUCOSE, FASTING 94 MG/DL (60-100); POTASSIUM SERUM 4.5 MMOL/L (3.5-5.1); SODIUM LEVEL 142 MMOL/L (136-145); TOTAL PROTEIN 6.5 G/DL (5.7-8.2)
[2023-11-29 15:58] LABS: BASO # 0.1 10^3/uL (0.0-0.2); BASO % 0.8 % (0.0-1.0); EOS # 0.2 10^3/uL (0.0-0.5); EOS % 2.4 % (0.0-3.0); HEMATOCRIT 41.3 % (36.0-47.0); HEMOGLOBIN 13.5 g/dl (12.0-15.5); LYMPH # 1.7 10^3/uL (1.5-5.0); LYMPH % 22.4 % (24.0-44.0); MEAN CORPUSCULAR HEMOGLOBIN 33.2 pg (27.0-33.0); MEAN CORPUSCULAR HGB CONC 32.7 g/dl (32.0-36.5); MEAN CORPUSCULAR VOLUME 101.5 fl (80.0-96.0); MONO # 0.6 10^3/uL (0.0-0.8); MONO % 7.1 % (2.0-8.0); NEUTROPHILS # 5.2 10^3/uL (1.5-8.5); PLATELET COUNT, AUTOMATED 419 10^3/uL (150-450); RED BLOOD COUNT 4.07 10^6/uL (4.00-5.40); WHITE BLOOD COUNT 7.8 10^3/uL (4.0-10.0)
[2023-11-29 15:59] LABS: HEPATITIS B SURFACE ANTIBODY NEGATIVE (POSITIVE)
[2023-11-29 16:06] LABS: ERYTHROCYTE SEDIMENTATION RATE 19 mm/hr (0-30)
[2023-11-29 16:12] LABS: HEPATITIS B SURFACE ANTIGEN NEGATIVE (NEGATIVE)
[2023-11-29 16:32] LABS: HEPATITIS C VIRUS ABY INDEX < 0.02 INDEX (<0.8)
[2023-11-30 13:21] LABS: HEPATITIS B CORE ANTIBODY IGG NON-REACTIVE (NON-REACTIVE)
== END ==
LOC: M SFHCRHEU 09:14
PROVIDERS: ATTEND Internal Medicine
DX: M47.819 Spondylosis without myelopathy or radiculopathy, site unspecified (principal); Z11.59 Encounter for screening for other viral diseases

== ENCOUNTER → 2024-02-26 | Outpatient (REF) | payer OTHER ==
[2024-02-26 18:17] LABS: BASO # 0.1 10^3/uL (0.0-0.2); BASO % 0.6 % (0.0-1.0); EOS # 0.2 10^3/uL (0.0-0.5); EOS % 3.1 % (0.0-3.0); HEMATOCRIT 41.1 % (36.0-47.0); HEMOGLOBIN 13.7 g/dl (12.0-15.5); LYMPH # 1.5 10^3/uL (1.5-5.0); LYMPH % 19.7 % (24.0-44.0); MEAN CORPUSCULAR HEMOGLOBIN 33.5 pg (27.0-33.0); MEAN CORPUSCULAR HGB CONC 33.3 g/dl (32.0-36.5); MEAN CORPUSCULAR VOLUME 100.5 fl (80.0-96.0); MONO # 0.6 10^3/uL (0.0-0.8); MONO % 7.6 % (2.0-8.0); NEUTROPHILS # 5.3 10^3/uL (1.5-8.5); NEUTROPHILS % 68.6 % (36.0-66.0); PLATELET COUNT, AUTOMATED 438 10^3/uL (150-450); RED BLOOD COUNT 4.09 10^6/uL (4.00-5.40); WHITE BLOOD COUNT 7.7 10^3/uL (4.0-10.0)
[2024-02-26 18:49] LABS: THYROID STIMULATING HORMONE 1.274 uIU/ML (0.55-4.78)
[2024-02-26 18:51] LABS: ALBUMIN 3.9 G/DL (3.2-5.2); ALKALINE PHOSPHATASE 71 U/L (35-104); ALT/SGPT 13 U/L (7.0-40); AST/SGOT 14 U/L (<34); BILIRUBIN,TOTAL 0.5 MG/DL (0.3-1.2); BLOOD UREA NITROGEN 19 MG/DL (9-23); CARBON DIOXIDE LEVEL 28 MMOL/L (20-31); CHLORIDE LEVEL 108 MMOL/L (98-107); CHOLESTEROL LEVEL 278 MG/DL (<200); CHOLESTEROL RISK RATIO 5.12 (<5); CREATININE FOR GFR 0.71 MG/DL (0.55-1.30); GLOMERULAR FILTRATION RATE > 60.0 (>45); GLUCOSE, FASTING 92 MG/DL (74-106); HDL CHOLESTEROL 54.2 MG/DL (>40); LDL CHOLESTEROL 184.8 MG/DL (<100); NON-HDL-C 223.8 MG/DL; POTASSIUM SERUM 4.4 MMOL/L (3.5-5.1); SODIUM LEVEL 143 MMOL/L (136-145); TOTAL PROTEIN 6.5 G/DL (5.7-8.2); TRIGLYCERIDES LEVEL 195 MG/DL (<150)
== END ==
LOC: M SFHCADAM 11:34
PROVIDERS: ATTEND Physician Assistant Medical
DX: K21.9 Gastro-esophageal reflux disease without esophagitis (principal); E78.2 Mixed hyperlipidemia; M79.7 Fibromyalgia

== ENCOUNTER → 2025-01-06 | Outpatient (REF) | payer OTHER ==
[~2025-01-06] MED LIST changes: -TRET0.02 EXT; +TRET0.046 EXT
[2025-01-06 14:26] LABS: BASO # 0.1 10^3/uL (0.0-0.2); BASO % 0.5 % (0.0-1.0); EOS # 0.1 10^3/uL (0.0-0.5); EOS % 1.2 % (0.0-3.0); LYMPH # 2.2 10^3/uL (1.5-5.0); LYMPH % 20.6 % (24.0-44.0); MONO # 0.8 10^3/uL (0.0-0.8); MONO % 7.9 % (2.0-8.0); NEUTROPHILS # 7.3 10^3/uL (1.5-8.5); NEUTROPHILS % 69.4 % (36.0-66.0); PLATELET COUNT, AUTOMATED 613 10^3/uL (150-450)
[2025-01-06 14:32] LABS: ALT/SGPT 15 U/L (7.0-40); AST/SGOT 17 U/L (<34); CALCIUM LEVEL 9.0 MG/DL (8.3-10.6); CARBON DIOXIDE LEVEL 28 MMOL/L (20-31); CHLORIDE LEVEL 107 MMOL/L (98-107); CHOLESTEROL LEVEL 158 MG/DL (<200); CHOLESTEROL RISK RATIO 2.26 (<5); CREATININE FOR GFR 0.71 MG/DL (0.55-1.30); GLOMERULAR FILTRATION RATE > 90.0 (>45); LDL CHOLESTEROL 73.0 MG/DL (<100); NON-HDL-C 88.2 MG/DL; POTASSIUM SERUM 4.4 MMOL/L (3.5-5.1); SODIUM LEVEL 142 MMOL/L (136-145); TOTAL 25(OH) VITAMIN D 63.0 NG/ML (20.0-100.0); TRIGLYCERIDES LEVEL 76 MG/DL (<150)
[2025-01-06 14:34] LABS: FREE T4 1.10 NG/DL (0.89-1.76)
== END ==
LOC: M SFHCADAM 10:10
PROVIDERS: ATTEND Physician Assistant Medical
DX: Z00.00 Encounter for general adult medical examination without abnormal findings (principal); E78.2 Mixed hyperlipidemia; M79.7 Fibromyalgia; K44.9 Diaphragmatic hernia without obstruction or gangrene; K21.9 Gastro-esophageal reflux disease without esophagitis; F17.210 Nicotine dependence, cigarettes, uncomplicated